=== PATIENT | female | born 1950 | race African-American/Black ===

== ENCOUNTER 2017-09-16 04:58 | Emergency (ER) | payer MEDICARE, MEDICAID ==
[~2017-09-16] VITALS: Ht 167.6 cm; Wt 81.0 kg
[~2017-09-16 04:58] MED LIST: ESOM40CA PO; FOLI-43 PO; HYDR-4092 PO; HYDR200T35 PO; NAPR-679 PO; OLME1TAB14 PO; POTA8CAP10 PO; TRAM50TA PO; ZOLP10TA6 PO
[2017-09-16] MEDS ORDERED: ACETAMINOPHEN 500MG TABLET PO ONE (08:30)
[2017-09-16 09:31] VITALS: BP 148/80
== END 2017-09-16 10:08 | disposition home or self-care (01) ==
LOC: ER 04:58
DX: M79.641 Pain in right hand (principal); M25.531 Pain in right wrist; M25.511 Pain in right shoulder; I10 Essential (primary) hypertension; J45.909 Unspecified asthma, uncomplicated; Z88.0 Allergy status to penicillin; Z88.1 Allergy status to other antibiotic agents
CPT/HCPCS: 73030; 73130; 99284

== ENCOUNTER 2017-11-29 15:16 | Emergency (ER) | payer MEDICARE, MEDICAID ==
[~2017-11-29] VITALS: Ht 167.6 cm; Wt 82.0 kg
[2017-11-29] MEDS: ACETAMINOPHEN 325MG TABLET PO ONE (16:09)
[2017-11-29] MEDS: VISCOUS LIDOCAINE 2% 15 ML UDC MM STA (16:10)
[2017-11-29 16:22] VITALS: BP 161/98
== END 2017-11-29 16:25 | disposition home or self-care (01) ==
LOC: ER 15:27
DX: H66.91 Otitis media, unspecified, right ear (principal); J45.909 Unspecified asthma, uncomplicated; I10 Essential (primary) hypertension; Z88.0 Allergy status to penicillin; Z88.1 Allergy status to other antibiotic agents
CPT/HCPCS: 99283

== ENCOUNTER 2019-04-08 14:44 | Emergency (ER) | payer MEDICARE, BC ==
[~2019-04-08] VITALS: Ht 165.1 cm; Wt 76.0 kg
[~2019-04-08 14:44] MED LIST changes: +HYDR-4086 PO; -HYDR-4092 PO
[2019-04-08] MEDS ORDERED: HYDROCODONE/ACETAMINOPHEN 5/325MG TABLET PO STA (17:07)
[2019-04-08 17:45] LABS: BASOPHILS % 0.9 % (0.0-2.0); EOSINOPHILS % 0.6 % (0.0-5.0); HEMATOCRIT. 35.6 % (36.0-48.0); HEMOGLOBIN. 11.2 g/dL (12.0-16.0); LYMPHOCYTES % 29.4 % (20.0-50.0); MEAN CORPUSCULAR HEMOGLOBIN 26.8 pg (28.0-32.0); MEAN PLATELET VOLUME 8.1 fl (7.4-10.4); MONOCYTES % 9.1 % (2.0-8.0); PLATELET 269 x1000/uL (130-400); RED BLOOD CELL COUNT 4.18 mill/uL (4.2-5.4); RED CELL DISTRIBUTION WIDTH 14.9 % (11.6-14.6)
[2019-04-08 17:52] LABS: CHLORIDE 108 mEq/L (98-107); PROTHROMBIN TIME 9.9 sec (9.6-11.0)
[2019-04-08 18:55] VITALS: BP 138/78
== END 2019-04-08 19:16 | disposition home or self-care (01) ==
LOC: ER 14:56
DX: R51 Headache (principal); M79.605 Pain in left leg; M79.604 Pain in right leg; M25.511 Pain in right shoulder; I10 Essential (primary) hypertension; D50.9 Iron deficiency anemia, unspecified; M71.22 Synovial cyst of popliteal space [Baker], left knee; M71.21 Synovial cyst of popliteal space [Baker], right knee; R90.82 White matter disease, unspecified; W01.0XXA Fall on same level from slipping, tripping and stumbling without subsequent striking against object, initial encounter; Y93.H2 Activity, gardening and landscaping; Y92.017 Garden or yard in single-family (private) house as the place of occurrence of the external cause
CPT/HCPCS: 36415; 73030; 93970; 99284

== ENCOUNTER 2019-05-03 00:37 | Emergency (ER) | payer MEDICARE, BC ==
[~2019-05-03] VITALS: Ht 167.6 cm; Wt 80.0 kg
[2019-05-03] MEDS: HYDROCODONE/ACETAMINOPHEN 5/325MG TABLET PO ONE (02:25)
[2019-05-03] MEDS: KETOROLAC 60MG/2ML VIAL IM ONE (02:25)
[2019-05-03 02:56] VITALS: BP 143/78
== END 2019-05-03 03:03 | disposition home or self-care (01) ==
LOC: ER 01:33
DX: M79.18 Myalgia, other site (principal); F17.200 Nicotine dependence, unspecified, uncomplicated; I10 Essential (primary) hypertension; Z90.49 Acquired absence of other specified parts of digestive tract; Z90.710 Acquired absence of both cervix and uterus; Z79.899 Other long term (current) drug therapy; Z88.0 Allergy status to penicillin; Z88.1 Allergy status to other antibiotic agents
CPT/HCPCS: 96372; 99283; J1885

== ENCOUNTER 2020-08-22 07:33 | Emergency (ER) | payer MEDICARE, MEDICAID ==
[~2020-08-22] VITALS: Ht 167.6 cm; Wt 62.0 kg
[~2020-08-22 07:33] MED LIST changes: -POTA8CAP10 PO; +POTA8CAP20 PO
[2020-08-22] MEDS ORDERED: ACETAMINOPHEN 325MG TABLET PO ONE (08:45)
[2020-08-22 10:08] LABS: BASOPHILS % 0.8 % (0.0-2.0); EOSINOPHILS % 1.3 % (0.0-5.0); HEMATOCRIT. 34.9 % (36.0-48.0); HEMOGLOBIN. 11.2 g/dL (12.0-16.0); MEAN CORPUSCULAR HEMOGLOBIN 28.1 pg (28.0-32.0); MEAN CORPUSCULAR VOLUME 87.8 fL (81.0-99.0); MEAN PLATELET VOLUME 8.6 fl (7.4-10.4); MONOCYTES % 6.5 % (2.0-8.0); NEUTROPHILS % 47.4 % (40.0-76.0); PLATELET 181 x1000/uL (130-400); RED BLOOD CELL COUNT 3.97 mill/uL (4.2-5.4); RED CELL DISTRIBUTION WIDTH 13.4 % (11.6-14.6)
[2020-08-22 10:15] LABS: CHLORIDE 110 mEq/L (98-107)
[2020-08-22 10:19] LABS: INR 2.1; PARTIAL THROMBOPLASTIN TIME 40.4 sec (23.4-31.0); PROTHROMBIN TIME 20.9 sec (9.6-11.0)
[2020-08-22 11:25] VITALS: BP 145/85
== END 2020-08-22 12:05 | disposition home or self-care (01) ==
LOC: ER 07:33
DX: M71.22 Synovial cyst of popliteal space [Baker], left knee (principal); M71.21 Synovial cyst of popliteal space [Baker], right knee; I10 Essential (primary) hypertension; E78.5 Hyperlipidemia, unspecified; Z86.718 Personal history of other venous thrombosis and embolism; Z79.01 Long term (current) use of anticoagulants
CPT/HCPCS: 36415; 71045; 73560; 80053; 85025; 93005; 93970; 99285

== ENCOUNTER 2020-08-31 18:47 | Emergency (ER) | payer MEDICARE, MEDICAID ==
[~2020-08-31] VITALS: Ht 167.6 cm; Wt 67.0 kg
[2020-09-01] MEDS ORDERED: ACETAMINOPHEN 325MG TABLET PO ONE (00:15)
[2020-09-01 01:43] LABS: BASOPHILS % 1.1 % (0.0-2.0); HEMATOCRIT. 32.2 % (36.0-48.0); HEMOGLOBIN. 10.5 g/dL (12.0-16.0); LYMPHOCYTES % 34.2 % (20.0-50.0); MEAN CORPUSCULAR HEMOGLOBIN 28.4 pg (28.0-32.0); MEAN CORPUSCULAR VOLUME 86.8 fL (81.0-99.0); MONOCYTES % 9.1 % (2.0-8.0); NEUTROPHILS % 54.6 % (40.0-76.0); PLATELET 250 x1000/uL (130-400); RED BLOOD CELL COUNT 3.71 mill/uL (4.2-5.4); RED CELL DISTRIBUTION WIDTH 13.7 % (11.6-14.6)
[2020-09-01 01:55] LABS: CHLORIDE 112 mEq/L (98-107)
[2020-09-01 01:57] LABS: INR 1.6; PROTHROMBIN TIME 16.1 sec (9.6-11.0)
[2020-09-01 04:05] VITALS: BP 157/73
== END 2020-09-01 05:00 | disposition home or self-care (01) ==
LOC: ER 18:47
DX: R60.0 Localized edema (principal); D64.9 Anemia, unspecified; I10 Essential (primary) hypertension; Z90.49 Acquired absence of other specified parts of digestive tract; Z90.710 Acquired absence of both cervix and uterus; Z88.0 Allergy status to penicillin; Z79.899 Other long term (current) drug therapy
CPT/HCPCS: 36415; 80053; 85025; 93005; 93971; 99285

== ENCOUNTER 2021-02-10 05:45 | Inpatient (IN) | payer MEDICARE, MEDICAID ==
[~2021-02-10] VITALS: Ht 167.6 cm; Wt 65.8 kg
[2021-02-10] MEDS: IPRATROPIUM/ALBUTEROL 0.5-3(2.5)MG/3ML NEB HHN SCH (00:56)
[~2021-02-10 05:45] MED LIST changes: +P20 MT; +THEO100C MT
[2021-02-10 06:37] LABS: HEMATOCRIT. 29.3 % (36.0-48.0); HEMOGLOBIN. 9.7 g/dL (12.0-16.0); MEAN CORPUSCULAR HEMOGLOBIN 27.4 pg (28.0-32.0); MEAN CORPUSCULAR VOLUME 82.3 fL (81.0-99.0); MEAN PLATELET VOLUME 7.6 fl (7.4-10.4); PLATELET 259 x1000/uL (130-400); RED BLOOD CELL COUNT 3.56 mill/uL (4.2-5.4); RED CELL DISTRIBUTION WIDTH 14.2 % (11.6-14.6)
[2021-02-10 06:42] LABS: CHLORIDE 108 mEq/L (98-107)
[2021-02-10 07:07] LABS: INR 0.9; PROTHROMBIN TIME 9.6 sec (9.6-11.0)
[2021-02-10 09:58] LABS: PLATELET ESTIMATE NORMAL
[2021-02-10] MEDS ORDERED: DEXT 5%/0.9% NACL 1,000 ML IV ONE (10:00)
[2021-02-10] MEDS: METHYLPREDNISOLONE SOD SUCC 40 MG/ML VIAL IV SCH ×2 (10:32→21:59)
[2021-02-10] MEDS ORDERED: AMLODIPINE 5MG TABLET PO NR (16:00)
[2021-02-10 16:13] LABS: INR 0.9; PROTHROMBIN TIME 10.1 sec (9.6-11.0)
[2021-02-10 18:05] VITALS: BP_SYST 161; BP_DIAS 72; BP_DIAS 78
[2021-02-10 18:39] LABS: HEMOGLOBIN 8.2 g/dL (12.0-16.0)
[2021-02-10] MEDS ORDERED: ACETAMINOPHEN 325MG TABLET PO PRN (19:30)
[2021-02-10] MEDS ORDERED: LORAZEPAM 2MG/ML CPJ IV PRN (19:30)
[2021-02-10] MEDS ORDERED: ZOLPIDEM TARTRATE 5MG TABLET PO PRN (19:30)
[2021-02-10] MEDS ORDERED: ONDANSETRON HCL 4MG/2ML INJ IV PRN (19:30)
[2021-02-10] MEDS ORDERED: MAGNESIUM/ALUMINUM HYDROXIDE/SIMETHICONE 30ML UDC PO PRN (19:30)
[2021-02-10] MEDS: METOPROLOL TARTRATE 25MG TABLET PO SCH (19:53)
[2021-02-10 20:00] VITALS: BP 139/85
[2021-02-10 20:31] LABS: BASOPHILS % 0.4 % (0.0-2.0); HEMATOCRIT. 23.4 % (36.0-48.0); LYMPHOCYTES % 11.3 % (20.0-50.0); MEAN CORPUSCULAR HEMOGLOBIN 28.2 pg (28.0-32.0); MEAN CORPUSCULAR VOLUME 82.1 fL (81.0-99.0); MEAN PLATELET VOLUME 7.4 fl (7.4-10.4); MONOCYTES % 6.2 % (2.0-8.0); NEUTROPHILS % 82.1 % (40.0-76.0); PLATELET 231 x1000/uL (130-400); RED BLOOD CELL COUNT 2.85 mill/uL (4.2-5.4); RED CELL DISTRIBUTION WIDTH 14.1 % (11.6-14.6)
[2021-02-10] MEDS ORDERED: ERGOCALCIFEROL 50000UNITS CAPSULE PO SCH (21:00)
[2021-02-10] MEDS: TRAZODONE HCL 50MG TABLET PO SCH (21:59)
[2021-02-10 22:00] VITALS: BP 169/99
[2021-02-10] MEDS: THEOPHYLLINE ANHYDROUS 80 MG/15 ML 120ML PO SCH (22:00)
[2021-02-10] MEDS: LOSARTAN POTASSIUM 100 MG TABLET PO SCH (22:00)
[2021-02-10] MEDS: ATORVASTATIN CALCIUM 10MG TABLET PO SCH (22:00)
[2021-02-10] MEDS: HYDRALAZINE HCL 50MG TABLET PO SCH (22:12)
[2021-02-10] MEDS: LISINOPRIL 20MG TABLET PO SCH (23:41)
[2021-02-11] VITALS (17 sets, daily range): BP systolic 114–179; BP diastolic 62–90
[2021-02-11 01:38] LABS: HEMATOCRIT 23.6 % (36.0-48.0)
[2021-02-11] MEDS: DEXT 5%/0.9% NACL 1,000 ML IV SCH ×3 (04:06→22:37)
[2021-02-11] MEDS: IPRATROPIUM/ALBUTEROL 0.5-3(2.5)MG/3ML NEB HHN SCH ×5 (04:30→21:05)
[2021-02-11 06:07] LABS: CHLORIDE 106 mEq/L (98-107)
[2021-02-11 06:22] LABS: TOTAL IRON BINDING CAPACITY 234 ug/dL (250-450)
[2021-02-11 06:24] LABS: PHOSPHORUS 3.6 mg/dL (2.5-4.9)
[2021-02-11 06:27] LABS: BASOPHILS % 0.2 % (0.0-2.0); HEMATOCRIT. 23.6 % (36.0-48.0); HEMOGLOBIN. 7.8 g/dL (12.0-16.0); LYMPHOCYTES % 14.3 % (20.0-50.0); MEAN CORPUSCULAR HEMOGLOBIN 27.6 pg (28.0-32.0); MEAN CORPUSCULAR VOLUME 83.6 fL (81.0-99.0); MEAN PLATELET VOLUME 8.4 fl (7.4-10.4); MONOCYTES % 3.6 % (2.0-8.0); NEUTROPHILS % 81.9 % (40.0-76.0); PLATELET 229 x1000/uL (130-400); RED BLOOD CELL COUNT 2.82 mill/uL (4.2-5.4)
[2021-02-11 06:39] LABS: FERRITIN 286 ng/mL (10-291)
[2021-02-11] MEDS: THEOPHYLLINE ANHYDROUS 80 MG/15 ML 120ML PO SCH ×3 (06:42→22:36)
[2021-02-11 06:53] LABS: VITAMIN B12 SERUM 998 pg/mL (211-911)
[2021-02-11 06:54] LABS: FOLIC ACID (FOLATE) SERUM > 20.00 ng/mL (>5.38)
[2021-02-11] MEDS: LISINOPRIL 20MG TABLET PO SCH (08:51)
[2021-02-11] MEDS: METOPROLOL TARTRATE 25MG TABLET PO SCH ×2 (08:51→16:21)
[2021-02-11] MEDS: HYDROXYCHLOROQUINE SULFATE 200MG TABLET PO SCH ×2 (08:51→16:21)
[2021-02-11] MEDS: HYDRALAZINE HCL 50MG TABLET PO SCH ×2 (08:51→22:35)
[2021-02-11] MEDS: TRAZODONE HCL 50MG TABLET PO SCH ×2 (08:52→22:36)
[2021-02-11] MEDS: METHYLPREDNISOLONE SOD SUCC 40 MG/ML VIAL IV SCH ×2 (08:53→22:34)
[2021-02-11] MEDS: CALCIUM CARBONATE 1250MG TABLET (500MG ELEMENTAL CALCIUM) PO SCH ×3 (10:02→16:21)
[2021-02-11 10:34] LABS: HEMATOCRIT 20.3 % (36.0-48.0); HEMOGLOBIN 6.7 g/dL (12.0-16.0)
[2021-02-11] MEDS ORDERED: METRONIDAZOLE 500 MG PREMIX 100 ML IV SCH (15:30)
[2021-02-11] MEDS: METRONIDAZOLE 500 MG PREMIX 100 ML IV SCH ×2 (16:15→22:37)
[2021-02-11] MEDS: LEVOFLOXACIN 750MG PREMIX 150 ML IV SCH (17:38)
[2021-02-11 21:32] LABS: HEMATOCRIT. 24.2 % (36.0-48.0); HEMOGLOBIN. 8.3 g/dL (12.0-16.0); LYMPHOCYTES % 10.3 % (20.0-50.0); MEAN CORPUSCULAR HEMOGLOBIN 28.2 pg (28.0-32.0); MEAN CORPUSCULAR VOLUME 81.9 fL (81.0-99.0); MEAN PLATELET VOLUME 7.8 fl (7.4-10.4); MONOCYTES % 6.8 % (2.0-8.0); NEUTROPHILS % 82.9 % (40.0-76.0); PLATELET 216 x1000/uL (130-400); RED BLOOD CELL COUNT 2.96 mill/uL (4.2-5.4); RED CELL DISTRIBUTION WIDTH 13.6 % (11.6-14.6)
[2021-02-11] MEDS: ATORVASTATIN CALCIUM 10MG TABLET PO SCH (22:36)
[2021-02-11] MEDS: LOSARTAN POTASSIUM 100 MG TABLET PO SCH (22:36)
[2021-02-12] VITALS (17 sets, daily range): BP systolic 108–134; BP diastolic 58–87
[2021-02-12 00:36] LABS: CLARITY URINE CLEAR (CLEAR); COLOR URINE YELLOW (YELLOW); KETONES URINE NEGATIVE (NEGATIVE); LEUKOCYTE ESTERASE URINE TRACE (NEGATIVE); NITRITE URINE NEGATIVE (NEGATIVE); OCCULT BLOOD URINE NEGATIVE (NEGATIVE); PH URINE 6.5 (4.5-8.0); PROTEIN URINE NEGATIVE (NEGATIVE); SPECIFIC GRAVITY URINE 1.005 (1.005-1.030); UROBILINOGEN URINE 0.2 E.U./dL (0.2-1.0)
[2021-02-12] MEDS: IPRATROPIUM/ALBUTEROL 0.5-3(2.5)MG/3ML NEB HHN SCH ×6 (00:56→21:00)
[2021-02-12] MEDS: THEOPHYLLINE ANHYDROUS 80 MG/15 ML 120ML PO SCH ×3 (05:56→22:00)
[2021-02-12 06:46] LABS: HEMATOCRIT. 24.8 % (36.0-48.0); HEMOGLOBIN. 8.3 g/dL (12.0-16.0); MEAN CORPUSCULAR HEMOGLOBIN 27.5 pg (28.0-32.0); MEAN CORPUSCULAR VOLUME 82.1 fL (81.0-99.0); MEAN PLATELET VOLUME 7.8 fl (7.4-10.4); PLATELET 172 x1000/uL (130-400); RED BLOOD CELL COUNT 3.02 mill/uL (4.2-5.4); RED CELL DISTRIBUTION WIDTH 13.4 % (11.6-14.6)
[2021-02-12 07:08] LABS: PHOSPHORUS 2.9 mg/dL (2.5-4.9)
[2021-02-12] MEDS: METOPROLOL TARTRATE 25MG TABLET PO SCH ×2 (08:24→16:02)
[2021-02-12] MEDS: METHYLPREDNISOLONE SOD SUCC 40 MG/ML VIAL IV SCH (08:24)
[2021-02-12] MEDS: LISINOPRIL 20MG TABLET PO SCH (08:24)
[2021-02-12] MEDS: HYDROXYCHLOROQUINE SULFATE 200MG TABLET PO SCH ×2 (08:24→16:02)
[2021-02-12] MEDS: METRONIDAZOLE 500 MG PREMIX 100 ML IV SCH ×2 (08:24→15:05)
[2021-02-12] MEDS: TRAZODONE HCL 50MG TABLET PO SCH (08:25)
[2021-02-12] MEDS: CALCIUM CARBONATE 1250MG TABLET (500MG ELEMENTAL CALCIUM) PO SCH ×3 (08:25→16:02)
[2021-02-12] MEDS: HYDRALAZINE HCL 50MG TABLET PO SCH ×2 (08:25→21:00)
[2021-02-12 14:17] LABS: PLATELET ESTIMATE NORMAL
[2021-02-12] MEDS: DEXT 5%/0.9% NACL 1,000 ML IV SCH (14:29)
[2021-02-12] MEDS: LEVOFLOXACIN 750MG PREMIX 150 ML IV SCH (16:03)
[2021-02-13] VITALS (24 sets, daily range): BP systolic 108–176; BP diastolic 57–99
[2021-02-13] MEDS: METHYLPREDNISOLONE SOD SUCC 40 MG/ML VIAL IV SCH ×3 (00:10→21:06)
[2021-02-13] MEDS: LOSARTAN POTASSIUM 100 MG TABLET PO SCH ×2 (00:12→21:07)
[2021-02-13] MEDS: TRAZODONE HCL 50MG TABLET PO SCH ×3 (00:12→21:07)
[2021-02-13] MEDS: ATORVASTATIN CALCIUM 10MG TABLET PO SCH ×2 (00:13→21:07)
[2021-02-13] MEDS: METRONIDAZOLE 500 MG PREMIX 100 ML IV SCH ×3 (00:14→16:09)
[2021-02-13] MEDS: IPRATROPIUM/ALBUTEROL 0.5-3(2.5)MG/3ML NEB HHN SCH ×5 (00:30→17:12)
[2021-02-13] MEDS: THEOPHYLLINE ANHYDROUS 80 MG/15 ML 120ML PO SCH ×2 (05:59→14:09)
[2021-02-13 07:12] LABS: CHLORIDE 111 mEq/L (98-107)
[2021-02-13 07:14] LABS: MEAN CORPUSCULAR VOLUME 82.4 fL (81.0-99.0); MEAN PLATELET VOLUME 7.6 fl (7.4-10.4); PLATELET 176 x1000/uL (130-400); RED BLOOD CELL COUNT 2.42 mill/uL (4.2-5.4); RED CELL DISTRIBUTION WIDTH 14.3 % (11.6-14.6)
[2021-02-13 07:19] LABS: PHOSPHORUS 2.5 mg/dL (2.5-4.9)
[2021-02-13 08:33] LABS: HEMOGLOBIN. 6.8 g/dL (12.0-16.0)
[2021-02-13] MEDS: HYDROXYCHLOROQUINE SULFATE 200MG TABLET PO SCH ×2 (08:45→17:39)
[2021-02-13] MEDS: METOPROLOL TARTRATE 25MG TABLET PO SCH ×2 (08:45→17:41)
[2021-02-13] MEDS: CALCIUM CARBONATE 1250MG TABLET (500MG ELEMENTAL CALCIUM) PO SCH ×3 (08:46→17:39)
[2021-02-13] MEDS: HYDRALAZINE HCL 50MG TABLET PO SCH ×2 (08:46→21:06)
[2021-02-13] MEDS: LISINOPRIL 20MG TABLET PO SCH (08:46)
[2021-02-13] MEDS: DEXT 5%/0.9% NACL 1,000 ML IV SCH ×2 (14:10→14:11)
[2021-02-13 14:34] LABS: PLATELET ESTIMATE NORMAL
[2021-02-13] MEDS: LEVOFLOXACIN 750MG PREMIX 150 ML IV SCH (17:39)
[2021-02-14] VITALS (19 sets, daily range): BP systolic 105–182; BP diastolic 61–99
[2021-02-14] MEDS: METRONIDAZOLE 500 MG PREMIX 100 ML IV SCH ×3 (00:49→17:18)
[2021-02-14] MEDS: THEOPHYLLINE ANHYDROUS 80 MG/15 ML 120ML PO SCH ×4 (00:50→21:40)
[2021-02-14 01:22] LABS: HEMATOCRIT 26.1 % (36.0-48.0)
[2021-02-14] MEDS ORDERED: CLONIDINE 0.3MG TABLET PO NR (02:00)
[2021-02-14] MEDS: DEXT 5%/0.9% NACL 1,000 ML IV SCH ×2 (03:37→17:23)
[2021-02-14 06:55] LABS: BASOPHILS % 0.1 % (0.0-2.0); HEMATOCRIT. 23.4 % (36.0-48.0); HEMOGLOBIN. 7.9 g/dL (12.0-16.0); LYMPHOCYTES % 7.6 % (20.0-50.0); MEAN CORPUSCULAR HEMOGLOBIN 28.7 pg (28.0-32.0); MEAN CORPUSCULAR VOLUME 84.7 fL (81.0-99.0); MEAN PLATELET VOLUME 7.4 fl (7.4-10.4); MONOCYTES % 5.3 % (2.0-8.0); PLATELET 161 x1000/uL (130-400); RED BLOOD CELL COUNT 2.76 mill/uL (4.2-5.4); RED CELL DISTRIBUTION WIDTH 15.1 % (11.6-14.6)
[2021-02-14 06:56] LABS: INR 1.1; PARTIAL THROMBOPLASTIN TIME 25.1 sec (23.4-31.0); PROTHROMBIN TIME 11.8 sec (9.6-11.0)
[2021-02-14 07:02] LABS: CHLORIDE 112 mEq/L (98-107)
[2021-02-14] MEDS: IPRATROPIUM/ALBUTEROL 0.5-3(2.5)MG/3ML NEB HHN SCH ×3 (07:40→16:26)
[2021-02-14] MEDS: METHYLPREDNISOLONE SOD SUCC 40 MG/ML VIAL IV SCH ×3 (09:28→21:40)
[2021-02-14] MEDS: LISINOPRIL 20MG TABLET PO SCH (09:29)
[2021-02-14] MEDS: TRAZODONE HCL 50MG TABLET PO SCH ×2 (09:29→21:40)
[2021-02-14] MEDS: CALCIUM CARBONATE 1250MG TABLET (500MG ELEMENTAL CALCIUM) PO SCH ×3 (09:29→17:25)
[2021-02-14] MEDS: HYDROXYCHLOROQUINE SULFATE 200MG TABLET PO SCH ×2 (09:29→17:19)
[2021-02-14] MEDS: METOPROLOL TARTRATE 25MG TABLET PO SCH ×2 (09:29→17:20)
[2021-02-14] MEDS: HYDRALAZINE HCL 50MG TABLET PO SCH ×2 (09:30→21:39)
[2021-02-14 17:13] LABS: BASOPHILS % 0.1 % (0.0-2.0); HEMATOCRIT. 23.8 % (36.0-48.0); HEMOGLOBIN. 8.2 g/dL (12.0-16.0); LYMPHOCYTES % 11.4 % (20.0-50.0); MEAN CORPUSCULAR HEMOGLOBIN 29.3 pg (28.0-32.0); MEAN CORPUSCULAR VOLUME 85.4 fL (81.0-99.0); MEAN PLATELET VOLUME 7.4 fl (7.4-10.4); NEUTROPHILS % 84.5 % (40.0-76.0); PLATELET 159 x1000/uL (130-400); RED BLOOD CELL COUNT 2.78 mill/uL (4.2-5.4); RED CELL DISTRIBUTION WIDTH 14.9 % (11.6-14.6)
[2021-02-14] MEDS: LEVOFLOXACIN 750MG PREMIX 150 ML IV SCH (17:18)
[2021-02-14] MEDS: LOSARTAN POTASSIUM 100 MG TABLET PO SCH (21:40)
[2021-02-14] MEDS: ATORVASTATIN CALCIUM 10MG TABLET PO SCH (21:40)
[2021-02-15] VITALS: BP 112/77
[2021-02-15] MEDS: IPRATROPIUM/ALBUTEROL 0.5-3(2.5)MG/3ML NEB HHN SCH ×6 (00:34→20:47)
[2021-02-15] MEDS: METRONIDAZOLE 500 MG PREMIX 100 ML IV SCH ×3 (01:49→16:20)
[2021-02-15] MEDS: ACETAMINOPHEN 325MG TABLET PO PRN ×2 (02:12→15:26)
[2021-02-15 04:00] VITALS: BP 119/55
[2021-02-15] MEDS: METHYLPREDNISOLONE SOD SUCC 40 MG/ML VIAL IV SCH ×3 (06:01→21:06)
[2021-02-15] MEDS: THEOPHYLLINE ANHYDROUS 80 MG/15 ML 120ML PO SCH ×3 (06:02→21:08)
[2021-02-15 08:00] VITALS: BP 113/67
[2021-02-15 08:33] LABS: BASOPHILS % 0.1 % (0.0-2.0); HEMATOCRIT. 23.1 % (36.0-48.0); HEMOGLOBIN. 7.6 g/dL (12.0-16.0); LYMPHOCYTES % 8.6 % (20.0-50.0); MEAN CORPUSCULAR HEMOGLOBIN 28.4 pg (28.0-32.0); MEAN CORPUSCULAR VOLUME 85.7 fL (81.0-99.0); MEAN PLATELET VOLUME 7.4 fl (7.4-10.4); MONOCYTES % 3.5 % (2.0-8.0); NEUTROPHILS % 87.8 % (40.0-76.0); PLATELET 179 x1000/uL (130-400); RED BLOOD CELL COUNT 2.69 mill/uL (4.2-5.4); RED CELL DISTRIBUTION WIDTH 14.8 % (11.6-14.6)
[2021-02-15 08:46] LABS: CHLORIDE 113 mEq/L (98-107)
[2021-02-15] MEDS: HYDRALAZINE HCL 50MG TABLET PO SCH ×2 (09:00→21:07)
[2021-02-15] MEDS: HYDROXYCHLOROQUINE SULFATE 200MG TABLET PO SCH ×2 (09:00→16:20)
[2021-02-15] MEDS: METOPROLOL TARTRATE 25MG TABLET PO SCH ×2 (09:00→16:19)
[2021-02-15] MEDS: LISINOPRIL 20MG TABLET PO SCH (09:00)
[2021-02-15] MEDS: TRAZODONE HCL 50MG TABLET PO SCH ×2 (09:00→21:06)
[2021-02-15] MEDS: CALCIUM CARBONATE 1250MG TABLET (500MG ELEMENTAL CALCIUM) PO SCH ×3 (09:00→16:20)
[2021-02-15 12:00] VITALS: BP 138/69
[2021-02-15] MEDS: DEXT 5%/0.9% NACL 1,000 ML IV SCH (14:13)
[2021-02-15 16:00] VITALS: BP 143/68
[2021-02-15] MEDS: LEVOFLOXACIN 750MG PREMIX 150 ML IV SCH (16:20)
[2021-02-15 20:00] VITALS: BP 148/82
[2021-02-15] MEDS: ATORVASTATIN CALCIUM 10MG TABLET PO SCH (21:06)
[2021-02-15] MEDS: LOSARTAN POTASSIUM 100 MG TABLET PO SCH (21:07)
[2021-02-16] VITALS (10 sets, daily range): BP systolic 112–175; BP diastolic 65–86
[2021-02-16] MEDS: METRONIDAZOLE 500 MG PREMIX 100 ML IV SCH ×2 (00:37→08:47)
[2021-02-16] MEDS: IPRATROPIUM/ALBUTEROL 0.5-3(2.5)MG/3ML NEB HHN SCH ×6 (00:44→21:07)
[2021-02-16 04:07] LABS: OVA & PARASITE EXAM Final report (.)
[2021-02-16] MEDS: THEOPHYLLINE ANHYDROUS 80 MG/15 ML 120ML PO SCH ×3 (06:00→21:32)
[2021-02-16] MEDS: METHYLPREDNISOLONE SOD SUCC 40 MG/ML VIAL IV SCH ×3 (06:15→19:05)
[2021-02-16] MEDS: TRAZODONE HCL 50MG TABLET PO SCH ×2 (08:57→21:31)
[2021-02-16] MEDS: HYDRALAZINE HCL 50MG TABLET PO SCH ×2 (08:57→21:30)
[2021-02-16] MEDS: METOPROLOL TARTRATE 25MG TABLET PO SCH ×2 (08:58→19:07)
[2021-02-16] MEDS: HYDROXYCHLOROQUINE SULFATE 200MG TABLET PO SCH ×2 (08:58→19:05)
[2021-02-16] MEDS: LISINOPRIL 20MG TABLET PO SCH (08:58)
[2021-02-16] MEDS: CALCIUM CARBONATE 1250MG TABLET (500MG ELEMENTAL CALCIUM) PO SCH ×3 (08:58→19:05)
[2021-02-16 09:11] LABS: SACCHAROMYCES CEREVISIAE IGM <20.0 Units (0.0-24.9)
[2021-02-16 09:35] LABS: HEMATOCRIT. 27.6 % (36.0-48.0); HEMOGLOBIN. 9.1 g/dL (12.0-16.0); MEAN CORPUSCULAR HEMOGLOBIN 28.5 pg (28.0-32.0); MEAN CORPUSCULAR VOLUME 86.6 fL (81.0-99.0); MEAN PLATELET VOLUME 7.3 fl (7.4-10.4); PLATELET 172 x1000/uL (130-400); RED BLOOD CELL COUNT 3.18 mill/uL (4.2-5.4); RED CELL DISTRIBUTION WIDTH 14.6 % (11.6-14.6)
[2021-02-16 09:41] LABS: INR 1.1; PARTIAL THROMBOPLASTIN TIME 23.9 sec (23.4-31.0); PROTHROMBIN TIME 11.5 sec (9.6-11.0)
[2021-02-16 09:42] LABS: CHLORIDE 112 mEq/L (98-107)
[2021-02-16] MEDS: DEXT 5%/0.9% NACL 1,000 ML IV SCH ×3 (13:05→21:33)
[2021-02-16 13:07] LABS: ATYPICAL pANCA <1:20 titer (Neg:<1:20)
[2021-02-16] MEDS ORDERED: PROPOFOL 200MG/20ML VIAL IV ONE (14:14)
[2021-02-16] MEDS ORDERED: LIDOCAINE HCL 1% 20ML VIAL (Pyxis) INJ ONE (14:14)
[2021-02-16] MEDS ORDERED: PROPOFOL 10MG/ML 100ML 100 ML IV ONE (14:45)
[2021-02-16] MEDS: LEVOFLOXACIN 750MG PREMIX 150 ML IV SCH (19:07)
[2021-02-16] MEDS: ACETAMINOPHEN 325MG TABLET PO PRN ×2 (19:36→21:30)
[2021-02-16] MEDS: ATORVASTATIN CALCIUM 10MG TABLET PO SCH (21:31)
[2021-02-16] MEDS: LOSARTAN POTASSIUM 100 MG TABLET PO SCH (21:31)
[2021-02-17] VITALS: BP 116/72
[2021-02-17] MEDS: IPRATROPIUM/ALBUTEROL 0.5-3(2.5)MG/3ML NEB HHN SCH ×5 (00:34→20:29)
[2021-02-17 04:00] VITALS: BP 130/78
[2021-02-17] MEDS: THEOPHYLLINE ANHYDROUS 80 MG/15 ML 120ML PO SCH ×3 (06:13→21:07)
[2021-02-17] MEDS: METHYLPREDNISOLONE SOD SUCC 40 MG/ML VIAL IV SCH (06:13)
[2021-02-17 07:13] LABS: ANTI-CARDIOLIPIN AB IGG < 9 GPL U/mL (0-14); ANTI-CARDIOLIPIN AB IGM < 9 MPL U/mL (0-12)
[2021-02-17 07:55] LABS: EOSINOPHILS % 0.1 % (0.0-5.0); HEMATOCRIT. 26.9 % (36.0-48.0); HEMOGLOBIN. 8.9 g/dL (12.0-16.0); LYMPHOCYTES % 12.3 % (20.0-50.0); MEAN CORPUSCULAR HEMOGLOBIN 28.5 pg (28.0-32.0); MEAN CORPUSCULAR VOLUME 85.8 fL (81.0-99.0); MEAN PLATELET VOLUME 6.9 fl (7.4-10.4); MONOCYTES % 2.5 % (2.0-8.0); NEUTROPHILS % 85.1 % (40.0-76.0); PLATELET 168 x1000/uL (130-400); RED BLOOD CELL COUNT 3.13 mill/uL (4.2-5.4); RED CELL DISTRIBUTION WIDTH 15.1 % (11.6-14.6)
[2021-02-17 07:57] LABS: CHLORIDE 113 mEq/L (98-107)
[2021-02-17 08:00] VITALS: BP 141/82
[2021-02-17] MEDS: METOPROLOL TARTRATE 25MG TABLET PO SCH ×2 (08:27→16:41)
[2021-02-17] MEDS: TRAZODONE HCL 50MG TABLET PO SCH ×2 (08:27→21:08)
[2021-02-17] MEDS: HYDRALAZINE HCL 50MG TABLET PO SCH ×2 (08:27→21:08)
[2021-02-17] MEDS: CALCIUM CARBONATE 1250MG TABLET (500MG ELEMENTAL CALCIUM) PO SCH ×3 (08:28→16:41)
[2021-02-17] MEDS: HYDROXYCHLOROQUINE SULFATE 200MG TABLET PO SCH ×2 (08:28→17:56)
[2021-02-17] MEDS: LISINOPRIL 20MG TABLET PO SCH (08:28)
[2021-02-17] MEDS ORDERED: ERGOCALCIFEROL 50000UNITS CAPSULE PO SCH (09:00)
[2021-02-17 09:07] LABS: SACCHAROMYCES CEREVISIAE IGG 24.3 Units (0.0-24.9)
[2021-02-17] MEDS ORDERED: BARIUM SULFATE 176 GM SUSP.RECON ONE (11:29)
[2021-02-17] MEDS ORDERED: EZ-HD SUSPENSION(BARIUM SULFATE 340GM) PO ONE (11:29)
[2021-02-17] MEDS ORDERED: SIMETHICONE/SOD BICARB/CIT AC 1 EACH GRAN.EF.PK ONE (11:30)
[2021-02-17 12:00] VITALS: BP 167/92
[2021-02-17 12:34] LABS: PLATELET ESTIMATE NORMAL
[2021-02-17] MEDS ORDERED: POTASSIUM CHLORIDE INJ 30 MEQ in DEXT 5% WATER 250 ML IV ONE ×2 (13:00→17:00)
[2021-02-17] MEDS: DEXT 5%/0.9% NACL 1,000 ML IV SCH (14:06)
[2021-02-17 16:00] VITALS: BP 107/71
[2021-02-17] MEDS: LEVOFLOXACIN 750MG PREMIX 150 ML IV SCH (16:41)
[2021-02-17] MEDS: METRONIDAZOLE 500 MG PREMIX 100 ML IV SCH ×2 (16:41→21:07)
[2021-02-17 20:00] VITALS: BP 160/96
[2021-02-17] MEDS: LOSARTAN POTASSIUM 100 MG TABLET PO SCH (21:08)
[2021-02-17] MEDS: ATORVASTATIN CALCIUM 10MG TABLET PO SCH (21:08)
[2021-02-17] MEDS: ACETAMINOPHEN 325MG TABLET PO PRN (21:09)
[2021-02-18 00:40] VITALS: BP 150/94
[2021-02-18] MEDS: IPRATROPIUM/ALBUTEROL 0.5-3(2.5)MG/3ML NEB HHN SCH ×6 (00:49→20:34)
[2021-02-18 04:00] VITALS: BP 155/85
[2021-02-18] MEDS: DEXT 5%/0.9% NACL 1,000 ML IV SCH ×3 (05:51→20:43)
[2021-02-18] MEDS: METRONIDAZOLE 500 MG PREMIX 100 ML IV SCH ×3 (05:51→21:35)
[2021-02-18] MEDS: ACETAMINOPHEN 325MG TABLET PO PRN (05:51)
[2021-02-18] MEDS: THEOPHYLLINE ANHYDROUS 80 MG/15 ML 120ML PO SCH ×3 (05:51→21:37)
[2021-02-18 06:57] LABS: CHLORIDE 108 mEq/L (98-107)
[2021-02-18 08:00] VITALS: BP 141/66
[2021-02-18] MEDS: LISINOPRIL 20MG TABLET PO SCH (08:26)
[2021-02-18] MEDS: HYDROXYCHLOROQUINE SULFATE 200MG TABLET PO SCH ×2 (08:26→17:14)
[2021-02-18] MEDS: METOPROLOL TARTRATE 25MG TABLET PO SCH ×2 (08:26→17:14)
[2021-02-18] MEDS: PREDNISONE 20MG TABLET PO SCH (08:26)
[2021-02-18] MEDS: TRAZODONE HCL 50MG TABLET PO SCH ×2 (08:27→21:35)
[2021-02-18] MEDS: HYDRALAZINE HCL 50MG TABLET PO SCH ×2 (08:27→21:35)
[2021-02-18] MEDS: CALCIUM CARBONATE 1250MG TABLET (500MG ELEMENTAL CALCIUM) PO SCH ×3 (08:27→17:14)
[2021-02-18 12:00] VITALS: BP 141/89
[2021-02-18 16:00] VITALS: BP 150/86
[2021-02-18] MEDS: LEVOFLOXACIN 750MG PREMIX 150 ML IV SCH (17:14)
[2021-02-18 20:00] VITALS: BP 127/77
[2021-02-18] MEDS: ATORVASTATIN CALCIUM 10MG TABLET PO SCH (21:35)
[2021-02-18] MEDS: LOSARTAN POTASSIUM 100 MG TABLET PO SCH (21:36)
[2021-02-19] VITALS: BP 122/68
[2021-02-19] MEDS: IPRATROPIUM/ALBUTEROL 0.5-3(2.5)MG/3ML NEB HHN SCH ×4 (00:03→20:47)
[2021-02-19 04:00] VITALS: BP 122/70
[2021-02-19] MEDS: METRONIDAZOLE 500 MG PREMIX 100 ML IV SCH ×3 (06:13→21:19)
[2021-02-19] MEDS: THEOPHYLLINE ANHYDROUS 80 MG/15 ML 120ML PO SCH ×3 (06:13→21:20)
[2021-02-19 07:04] LABS: CHLORIDE 111 mEq/L (98-107)
[2021-02-19 08:00] VITALS: BP 117/80
[2021-02-19] MEDS: METOPROLOL TARTRATE 25MG TABLET PO SCH ×2 (08:53→17:01)
[2021-02-19] MEDS: TRAZODONE HCL 50MG TABLET PO SCH ×2 (08:53→21:19)
[2021-02-19] MEDS: HYDROXYCHLOROQUINE SULFATE 200MG TABLET PO SCH ×2 (08:53→17:01)
[2021-02-19] MEDS: LISINOPRIL 20MG TABLET PO SCH (08:54)
[2021-02-19] MEDS: HYDRALAZINE HCL 50MG TABLET PO SCH ×2 (08:54→21:19)
[2021-02-19] MEDS: CALCIUM CARBONATE 1250MG TABLET (500MG ELEMENTAL CALCIUM) PO SCH ×3 (08:54→17:01)
[2021-02-19] MEDS: PREDNISONE 20MG TABLET PO SCH (08:54)
[2021-02-19 12:00] VITALS: BP 115/67
[2021-02-19 13:03] LABS: HEMATOCRIT. 27.6 % (36.0-48.0); HEMOGLOBIN. 9.3 g/dL (12.0-16.0); MEAN PLATELET VOLUME 6.8 fl (7.4-10.4); PLATELET 156 x1000/uL (130-400); RED CELL DISTRIBUTION WIDTH 15.3 % (11.6-14.6)
[2021-02-19 13:26] LABS: MEAN CORPUSCULAR VOLUME 86.3 fL (81.0-99.0)
[2021-02-19] MEDS: DEXT 5%/0.9% NACL 1,000 ML IV SCH ×2 (15:11→16:52)
[2021-02-19 15:28] LABS: PLATELET ESTIMATE NORMAL
[2021-02-19 16:00] VITALS: BP 142/84
[2021-02-19] MEDS: LEVOFLOXACIN 750MG PREMIX 150 ML IV SCH (17:01)
[2021-02-19 20:00] VITALS: BP 139/87
[2021-02-19] MEDS: ATORVASTATIN CALCIUM 10MG TABLET PO SCH (21:19)
[2021-02-19] MEDS: LOSARTAN POTASSIUM 100 MG TABLET PO SCH (21:19)
[2021-02-19] MEDS: ACETAMINOPHEN 325MG TABLET PO PRN (21:23)
[2021-02-20] VITALS: BP 155/86
[2021-02-20] MEDS: IPRATROPIUM/ALBUTEROL 0.5-3(2.5)MG/3ML NEB HHN SCH ×5 (00:44→17:01)
[2021-02-20 04:00] VITALS: BP 129/71
[2021-02-20] MEDS: THEOPHYLLINE ANHYDROUS 80 MG/15 ML 120ML PO SCH ×2 (05:36→13:01)
[2021-02-20] MEDS: METRONIDAZOLE 500 MG PREMIX 100 ML IV SCH ×2 (05:36→13:00)
[2021-02-20 05:39] LABS: BASOPHILS % 0.3 % (0.0-2.0); EOSINOPHILS % 0.5 % (0.0-5.0); HEMATOCRIT. 26.9 % (36.0-48.0); LYMPHOCYTES % 13.7 % (20.0-50.0); MEAN CORPUSCULAR HEMOGLOBIN 28.9 pg (28.0-32.0); MEAN PLATELET VOLUME 6.7 fl (7.4-10.4); NEUTROPHILS % 80.5 % (40.0-76.0); PLATELET 143 x1000/uL (130-400); RED BLOOD CELL COUNT 3.13 mill/uL (4.2-5.4); RED CELL DISTRIBUTION WIDTH 15.2 % (11.6-14.6)
[2021-02-20 05:45] LABS: CHLORIDE 110 mEq/L (98-107)
[2021-02-20] MEDS: DEXT 5%/0.9% NACL 1,000 ML IV SCH (05:45)
[2021-02-20 08:00] VITALS: BP 150/79
[2021-02-20] MEDS: METOPROLOL TARTRATE 25MG TABLET PO SCH ×2 (09:22→16:48)
[2021-02-20] MEDS: TRAZODONE HCL 50MG TABLET PO SCH (09:22)
[2021-02-20] MEDS: HYDRALAZINE HCL 50MG TABLET PO SCH (09:22)
[2021-02-20] MEDS: CALCIUM CARBONATE 1250MG TABLET (500MG ELEMENTAL CALCIUM) PO SCH ×3 (09:22→16:48)
[2021-02-20] MEDS: HYDROXYCHLOROQUINE SULFATE 200MG TABLET PO SCH ×2 (09:22→16:48)
[2021-02-20] MEDS: PREDNISONE 20MG TABLET PO SCH (09:23)
[2021-02-20] MEDS: LISINOPRIL 20MG TABLET PO SCH (09:23)
[2021-02-20 12:00] VITALS: BP 132/76
[2021-02-20 16:00] VITALS: BP 128/72
[2021-02-20] MEDS ORDERED: POTASSIUM CHLORIDE 20MEQ TABLET SR PO NR (16:39)
[2021-02-20] MEDS: LEVOFLOXACIN 750MG PREMIX 150 ML IV SCH (16:48)
[2021-02-20] MEDS ORDERED: POTASSIUM CHLORIDE 20MEQ TABLET SR PO SCH (18:45)
== END 2021-02-20 19:06 | disposition home health service (06) | DRG 919 ==
LOC: ER 05:45 → 3WST 08:19 → ENRESERV 08:30 → 3WST 19:50 → 5WST 02-14 11:37
PROVIDERS: ADMIT Internal Medicine Rheumatology; ATTEND Internal Medicine Rheumatology
PROC: 30233N1 Transfusion of Nonautologous Red Blood Cells into Peripheral Vein, Percutaneous Approach (ICD-10-PCS; principal; 2021-02-13)
PROC: 0DJ08ZZ Inspection of Upper Intestinal Tract, Via Natural or Artificial Opening Endoscopic (ICD-10-PCS; 2021-02-16)
DX: T85.838A Hemorrhage due to other internal prosthetic devices, implants and grafts, initial encounter (principal); E43 Unspecified severe protein-calorie malnutrition; E87.1 Hypo-osmolality and hyponatremia; I31.3 Pericardial effusion (noninflammatory); D62 Acute posthemorrhagic anemia; K52.9 Noninfective gastroenteritis and colitis, unspecified; I77.6 Arteritis, unspecified; J44.9 Chronic obstructive pulmonary disease, unspecified; J84.10 Pulmonary fibrosis, unspecified; M05.10 Rheumatoid lung disease with rheumatoid arthritis of unspecified site; D64.9 Anemia, unspecified; E16.2 Hypoglycemia, unspecified; I12.9 Hypertensive chronic kidney disease with stage 1 through stage 4 chronic kidney disease, or unspecified chronic kidney disease; I25.10 Atherosclerotic heart disease of native coronary artery without angina pectoris; I27.21 Secondary pulmonary arterial hypertension; N18.9 Chronic kidney disease, unspecified; M19.90 Unspecified osteoarthritis, unspecified site; M06.9 Rheumatoid arthritis, unspecified; E78.5 Hyperlipidemia, unspecified; K57.30 Diverticulosis of large intestine without perforation or abscess without bleeding; E87.6 Hypokalemia; E11.22 Type 2 diabetes mellitus with diabetic chronic kidney disease; J98.4 Other disorders of lung; K21.9 Gastro-esophageal reflux disease without esophagitis; Z20.822 Contact with and (suspected) exposure to COVID-19; K44.9 Diaphragmatic hernia without obstruction or gangrene; Z98.84 Bariatric surgery status; Z90.710 Acquired absence of both cervix and uterus; Z90.49 Acquired absence of other specified parts of digestive tract; Z86.718 Personal history of other venous thrombosis and embolism; Z79.01 Long term (current) use of anticoagulants; Z88.1 Allergy status to other antibiotic agents; Z88.8 Allergy status to other drugs, medicaments and biological substances; Z79.891 Long term (current) use of opiate analgesic; Z79.899 Other long term (current) drug therapy; Z82.49 Family history of ischemic heart disease and other diseases of the circulatory system; Z82.3 Family history of stroke; Z82.5 Family history of asthma and other chronic lower respiratory diseases; Z83.3 Family history of diabetes mellitus; D50.9 Iron deficiency anemia, unspecified; R60.1 Generalized edema; K57.90 Diverticulosis of intestine, part unspecified, without perforation or abscess without bleeding; Z68.23 Body mass index [BMI] 23.0-23.9, adult
CPT/HCPCS: 36415; 74176; 74220; 78278; 80048; 80053; 81003; 82270; 82607; 82728; 82746; 82962; 83540; 83550; 83735; 84100; 84145; 85014; 85018; 85025; 86147; 86256; 86671; 86850; 86900; 86920; 87015; 87045; 87177; 87209; 87426; 87427; 87449; 87493; 89055; 93005; 94640; 99285; A9560; C1893; J1956; J2704; J2920; J3480; J3490; J7040; J7042; J7060; J7512; J7517; P9016; P9021

== ENCOUNTER 2021-06-25 20:21 | Emergency (ER) | payer MEDICARE, MEDICAID ==
[~2021-06-25] VITALS: Ht 167.6 cm; Wt 49.0 kg
[2021-06-25 22:53] LABS: BASOPHILS % 1.4 % (0.0-2.0); EOSINOPHILS % 2.6 % (0.0-5.0); HEMATOCRIT. 31.2 % (36.0-48.0); HEMOGLOBIN. 10.3 g/dL (12.0-16.0); LYMPHOCYTES % 47.6 % (20.0-50.0); MEAN CORPUSCULAR HEMOGLOBIN 27.8 pg (28.0-32.0); MEAN CORPUSCULAR VOLUME 84.3 fL (81.0-99.0); MEAN PLATELET VOLUME 8.2 fl (7.4-10.4); MONOCYTES % 6.8 % (2.0-8.0); NEUTROPHILS % 41.6 % (40.0-76.0); PLATELET 308 x1000/uL (130-400); RED BLOOD CELL COUNT 3.71 mill/uL (4.2-5.4); RED CELL DISTRIBUTION WIDTH 14.7 % (11.6-14.6)
[2021-06-25 23:01] LABS: CHLORIDE 106 mEq/L (98-107)
[2021-06-26 00:10] VITALS: BP 182/99
== END 2021-06-26 00:51 | disposition home or self-care (01) ==
LOC: ER 20:21
DX: I10 Essential (primary) hypertension (principal); D64.9 Anemia, unspecified
CPT/HCPCS: 36415; 80053; 85025; 93005; 99284

== ENCOUNTER 2021-10-21 17:53 | Inpatient (IN) | payer MEDICARE, MEDICAID ==
[~2021-10-21] VITALS: Ht 167.6 cm; Wt 73.0 kg
[2021-10-21 19:29] LABS: BASOPHILS % 1.2 % (0.0-2.0); EOSINOPHILS % 0.8 % (0.0-5.0); HEMATOCRIT. 30.2 % (36.0-48.0); HEMOGLOBIN. 9.4 g/dL (12.0-16.0); LYMPHOCYTES % 31.5 % (20.0-50.0); MEAN CORPUSCULAR HEMOGLOBIN 27.8 pg (28.0-32.0); MEAN PLATELET VOLUME 8.3 fl (7.4-10.4); MONOCYTES % 9.8 % (2.0-8.0); NEUTROPHILS % 56.7 % (40.0-76.0); PLATELET 257 x1000/uL (130-400); RED BLOOD CELL COUNT 3.39 mill/uL (4.2-5.4); RED CELL DISTRIBUTION WIDTH 13.3 % (11.6-14.6)
[2021-10-21 19:35] LABS: CHLORIDE 110 mEq/L (98-107)
[2021-10-22] MEDS ORDERED: FENTANYL CITRATE/PF 50MCG/ML 2ML VIAL IV ONE (04:45)
[2021-10-22 08:45] VITALS: BP 193/97
[2021-10-22 09:32] VITALS: BP 193/97
[2021-10-22] MEDS ORDERED: LORAZEPAM 0.5MG TABLET PO PRN (09:45)
[2021-10-22] MEDS ORDERED: IPRATROPIUM/ALBUTEROL 0.5-3(2.5)MG/3ML NEB NEB PRN (09:45)
[2021-10-22] MEDS ORDERED: ONDANSETRON HCL 4MG/2ML INJ IV PRN (09:45)
[2021-10-22] MEDS ORDERED: GUAIFENESIN 200MG/10ML SUGAR FREE UDC PO PRN (09:45)
[2021-10-22] MEDS: DULOXETINE HCL 60MG DR CAPSULE PO SCH ×2 (10:00→10:50)
[2021-10-22] MEDS: PREDNISONE 10MG TABLET PO SCH (10:00)
[2021-10-22] MEDS: CELECOXIB 200MG CAPSULE PO SCH ×4 (10:00→17:50)
[2021-10-22] MEDS: POTASSIUM CHLORIDE 20MEQ TABLET SR PO SCH (10:49)
[2021-10-22] MEDS: CHOLECALCIFEROL (D3) 1000 UNIT TABLET PO SCH (10:49)
[2021-10-22] MEDS: FUROSEMIDE 20MG TABLET PO SCH (10:51)
[2021-10-22] MEDS: LISINOPRIL 40MG TABLET PO SCH (10:51)
[2021-10-22] MEDS: PANTOPRAZOLE 40MG DR TABLET PO SCH (10:59)
[2021-10-22] MEDS ORDERED: NALOXONE HCL 0.4MG/ML VIAL IV PRN (11:30)
[2021-10-22 12:00] VITALS: BP 185/93
[2021-10-22] MEDS: CALCIUM 1250MG TABLET (500MG ELEMENTAL CALCIUM) PO SCH ×2 (12:21→16:55)
[2021-10-22] MEDS ORDERED: AMLODIPINE 5MG TABLET PO SCH (13:05)
[2021-10-22 13:24] LABS: CLARITY URINE CLEAR (CLEAR); COLOR URINE YELLOW (YELLOW); KETONES URINE NEGATIVE (NEGATIVE); LEUKOCYTE ESTERASE URINE TRACE (NEGATIVE); NITRITE URINE NEGATIVE (NEGATIVE); OCCULT BLOOD URINE NEGATIVE (NEGATIVE); PH URINE 5.5 (4.5-8.0); PROTEIN URINE NEGATIVE (NEGATIVE); SPECIFIC GRAVITY URINE 1.009 (1.005-1.030); UROBILINOGEN URINE 0.2 E.U./dL (0.2-1.0)
[2021-10-22] MEDS ORDERED: HYDRALAZINE HCL 50MG TABLET PO SCH (14:00)
[2021-10-22 16:37] VITALS: BP 162/92
[2021-10-22] MEDS: DEXT 5%/0.45% NACL 1000ML 1,000 ML IV SCH ×2 (16:58→20:54)
[2021-10-22] MEDS: HYDROMORPHONE HCL/PF 2MG/ML CPJ IV PRN ×2 (17:10→21:14)
[2021-10-22 20:00] VITALS: BP 147/88
[2021-10-22] MEDS: ATORVASTATIN CALCIUM 20MG TABLET PO SCH (21:12)
[2021-10-22] MEDS: AMLODIPINE 5MG TABLET PO SCH (21:13)
[2021-10-22] MEDS: HYDRALAZINE HCL 100MG TABLET PO SCH (21:13)
[2021-10-23] VITALS: BP 151/93
[2021-10-23 04:00] VITALS: BP 130/76
[2021-10-23] MEDS: DEXT 5%/0.45% NACL 1000ML 1,000 ML IV SCH ×2 (05:57→14:35)
[2021-10-23] MEDS: HYDRALAZINE HCL 100MG TABLET PO SCH ×3 (05:57→21:18)
[2021-10-23] MEDS: PANTOPRAZOLE 40MG DR TABLET PO SCH (05:57)
[2021-10-23] MEDS: HYDROMORPHONE HCL/PF 2MG/ML CPJ IV PRN ×2 (05:57→12:30)
[2021-10-23 07:03] LABS: BASOPHILS % 0.8 % (0.0-2.0); EOSINOPHILS % 1.1 % (0.0-5.0); HEMATOCRIT. 29.6 % (36.0-48.0); HEMOGLOBIN. 9.5 g/dL (12.0-16.0); LYMPHOCYTES % 34.9 % (20.0-50.0); MEAN CORPUSCULAR HEMOGLOBIN 28.5 pg (28.0-32.0); MEAN CORPUSCULAR VOLUME 88.6 fL (81.0-99.0); MEAN PLATELET VOLUME 8.8 fl (7.4-10.4); MONOCYTES % 8.7 % (2.0-8.0); NEUTROPHILS % 54.5 % (40.0-76.0); PLATELET 254 x1000/uL (130-400); RED BLOOD CELL COUNT 3.35 mill/uL (4.2-5.4); RED CELL DISTRIBUTION WIDTH 13.5 % (11.6-14.6)
[2021-10-23 07:09] LABS: CHLORIDE 106 mEq/L (98-107)
[2021-10-23] MEDS: CALCIUM 1250MG TABLET (500MG ELEMENTAL CALCIUM) PO SCH ×3 (07:50→17:28)
[2021-10-23 08:00] VITALS: BP 133/68
[2021-10-23] MEDS: POTASSIUM CHLORIDE 20MEQ TABLET SR PO SCH (09:14)
[2021-10-23] MEDS: CELECOXIB 200MG CAPSULE PO SCH ×2 (09:14→17:27)
[2021-10-23] MEDS: CHOLECALCIFEROL (D3) 1000 UNIT TABLET PO SCH (09:14)
[2021-10-23] MEDS: PREDNISONE 10MG TABLET PO SCH (09:15)
[2021-10-23] MEDS: AMLODIPINE 5MG TABLET PO SCH ×2 (09:17→17:28)
[2021-10-23] MEDS: FUROSEMIDE 20MG TABLET PO SCH (09:17)
[2021-10-23] MEDS: LISINOPRIL 40MG TABLET PO SCH (09:17)
[2021-10-23] MEDS: DULOXETINE HCL 60MG DR CAPSULE PO SCH (09:18)
[2021-10-23 12:00] VITALS: BP 149/80
[2021-10-23 16:00] VITALS: BP 120/72
[2021-10-23 20:00] VITALS: BP 132/73
[2021-10-23] MEDS: ATORVASTATIN CALCIUM 20MG TABLET PO SCH (21:18)
[2021-10-24] VITALS: BP 121/69
[2021-10-24] MEDS: DEXT 5%/0.45% NACL 1000ML 1,000 ML IV SCH ×3 (01:56→21:56)
[2021-10-24 04:00] VITALS: BP 155/80
[2021-10-24] MEDS: PANTOPRAZOLE 40MG DR TABLET PO SCH (06:29)
[2021-10-24] MEDS: HYDRALAZINE HCL 100MG TABLET PO SCH ×3 (06:30→21:56)
[2021-10-24] MEDS: ACETAMINOPHEN 325MG TABLET PO PRN ×2 (06:39→16:46)
[2021-10-24 08:00] VITALS: BP 148/79
[2021-10-24 08:50] LABS: BASOPHILS % 0.9 % (0.0-2.0); EOSINOPHILS % 0.3 % (0.0-5.0); HEMATOCRIT. 29.7 % (36.0-48.0); HEMOGLOBIN. 9.5 g/dL (12.0-16.0); LYMPHOCYTES % 33.1 % (20.0-50.0); MEAN CORPUSCULAR HEMOGLOBIN 28.2 pg (28.0-32.0); MEAN CORPUSCULAR VOLUME 88.3 fL (81.0-99.0); MEAN PLATELET VOLUME 7.9 fl (7.4-10.4); MONOCYTES % 7.8 % (2.0-8.0); NEUTROPHILS % 57.9 % (40.0-76.0); PLATELET 260 x1000/uL (130-400); RED BLOOD CELL COUNT 3.37 mill/uL (4.2-5.4)
[2021-10-24] MEDS: CHOLECALCIFEROL (D3) 1000 UNIT TABLET PO SCH (09:08)
[2021-10-24] MEDS: CELECOXIB 200MG CAPSULE PO SCH ×2 (09:08→16:50)
[2021-10-24] MEDS: PREDNISONE 20MG TABLET PO SCH (09:08)
[2021-10-24] MEDS: POTASSIUM CHLORIDE 20MEQ TABLET SR PO SCH (09:09)
[2021-10-24] MEDS: SERTRALINE HCL 50MG TABLET PO SCH (09:09)
[2021-10-24] MEDS: LISINOPRIL 40MG TABLET PO SCH (09:09)
[2021-10-24] MEDS: AMLODIPINE 5MG TABLET PO SCH ×2 (09:09→16:45)
[2021-10-24] MEDS: FUROSEMIDE 20MG TABLET PO SCH (09:09)
[2021-10-24] MEDS: CALCIUM 1250MG TABLET (500MG ELEMENTAL CALCIUM) PO SCH ×3 (09:09→16:50)
[2021-10-24 09:21] LABS: CHLORIDE 110 mEq/L (98-107)
[2021-10-24 12:00] VITALS: BP 153/80
[2021-10-24] MEDS: IPRATROPIUM/ALBUTEROL 0.5-3(2.5)MG/3ML NEB NEB SCH (14:32)
[2021-10-24 16:00] VITALS: BP 138/78
[2021-10-24] MEDS: HYDROMORPHONE HCL/PF 2MG/ML CPJ IV PRN (18:04)
[2021-10-24 20:00] VITALS: BP 132/62
[2021-10-24] MEDS: ATORVASTATIN CALCIUM 20MG TABLET PO SCH (21:55)
[2021-10-25] VITALS: BP 130/60
[2021-10-25] MEDS: HYDROMORPHONE HCL/PF 2MG/ML CPJ IV PRN ×2 (00:16→22:08)
[2021-10-25 04:00] VITALS: BP 141/75
[2021-10-25] MEDS: PANTOPRAZOLE 40MG DR TABLET PO SCH (06:39)
[2021-10-25] MEDS: SILDENAFIL CITRATE 20MG TABLET PO SCH ×3 (06:40→22:07)
[2021-10-25] MEDS: HYDRALAZINE HCL 100MG TABLET PO SCH ×3 (06:40→22:00)
[2021-10-25 07:56] LABS: BASOPHILS % 0.5 % (0.0-2.0); EOSINOPHILS % 0.1 % (0.0-5.0); HEMATOCRIT. 27.9 % (36.0-48.0); LYMPHOCYTES % 31.7 % (20.0-50.0); MEAN CORPUSCULAR HEMOGLOBIN 28.6 pg (28.0-32.0); MEAN CORPUSCULAR VOLUME 88.3 fL (81.0-99.0); MEAN PLATELET VOLUME 8.4 fl (7.4-10.4); NEUTROPHILS % 59.7 % (40.0-76.0); PLATELET 259 x1000/uL (130-400); RED BLOOD CELL COUNT 3.15 mill/uL (4.2-5.4)
[2021-10-25] MEDS: IPRATROPIUM/ALBUTEROL 0.5-3(2.5)MG/3ML NEB NEB SCH ×4 (07:59→21:59)
[2021-10-25 08:00] VITALS: BP 134/64
[2021-10-25] MEDS: DEXT 5%/0.45% NACL 1000ML 1,000 ML IV SCH ×2 (08:00→18:58)
[2021-10-25 08:29] LABS: CHLORIDE 106 mEq/L (98-107)
[2021-10-25] MEDS: CELECOXIB 200MG CAPSULE PO SCH ×2 (09:12→17:31)
[2021-10-25] MEDS: SERTRALINE HCL 50MG TABLET PO SCH (09:12)
[2021-10-25] MEDS: POTASSIUM CHLORIDE 20MEQ TABLET SR PO SCH (09:12)
[2021-10-25] MEDS: FUROSEMIDE 20MG TABLET PO SCH (09:12)
[2021-10-25] MEDS: PREDNISONE 20MG TABLET PO SCH (09:13)
[2021-10-25] MEDS: CHOLECALCIFEROL (D3) 1000 UNIT TABLET PO SCH (09:13)
[2021-10-25] MEDS: CALCIUM 1250MG TABLET (500MG ELEMENTAL CALCIUM) PO SCH ×3 (09:13→17:31)
[2021-10-25] MEDS: LISINOPRIL 40MG TABLET PO SCH (09:18)
[2021-10-25] MEDS: AMLODIPINE 5MG TABLET PO SCH ×2 (09:19→17:00)
[2021-10-25 12:00] VITALS: BP 129/69
[2021-10-25] MEDS: SODIUM CHLORIDE 45ML SPRAY NS SCH ×3 (12:06→17:32)
[2021-10-25] MEDS: FLUTICASONE PROPIONATE 50MCG/SPRAY BOTTLE BOTHNSTRLS SCH (12:06)
[2021-10-25 16:00] VITALS: BP 101/47
[2021-10-25 20:00] VITALS: BP 122/61
[2021-10-25] MEDS: ATORVASTATIN CALCIUM 20MG TABLET PO SCH (22:05)
[2021-10-26] VITALS: BP 127/63
[2021-10-26] MEDS: IPRATROPIUM/ALBUTEROL 0.5-3(2.5)MG/3ML NEB NEB SCH ×6 (02:20→20:41)
[2021-10-26] MEDS: DEXT 5%/0.45% NACL 1000ML 1,000 ML IV SCH ×2 (03:37→13:16)
[2021-10-26 04:00] VITALS: BP 123/64
[2021-10-26 05:17] LABS: BASOPHILS % 0.6 % (0.0-2.0); HEMATOCRIT. 24.8 % (36.0-48.0); HEMOGLOBIN. 8.3 g/dL (12.0-16.0); LYMPHOCYTES % 16.7 % (20.0-50.0); MEAN CORPUSCULAR HEMOGLOBIN 28.9 pg (28.0-32.0); MEAN CORPUSCULAR VOLUME 86.9 fL (81.0-99.0); MEAN PLATELET VOLUME 8.2 fl (7.4-10.4); MONOCYTES % 7.9 % (2.0-8.0); NEUTROPHILS % 74.8 % (40.0-76.0); PLATELET 219 x1000/uL (130-400); RED BLOOD CELL COUNT 2.86 mill/uL (4.2-5.4); RED CELL DISTRIBUTION WIDTH 13.3 % (11.6-14.6)
[2021-10-26] MEDS: HYDRALAZINE HCL 100MG TABLET PO SCH ×3 (06:00→21:41)
[2021-10-26] MEDS: SILDENAFIL CITRATE 20MG TABLET PO SCH ×3 (06:32→21:41)
[2021-10-26 08:00] VITALS: BP 123/65
[2021-10-26] MEDS: LISINOPRIL 40MG TABLET PO SCH (09:08)
[2021-10-26] MEDS: SERTRALINE HCL 50MG TABLET PO SCH (09:08)
[2021-10-26] MEDS: PREDNISONE 20MG TABLET PO SCH (09:08)
[2021-10-26] MEDS: AMLODIPINE 5MG TABLET PO SCH ×2 (09:08→17:42)
[2021-10-26] MEDS: FUROSEMIDE 20MG TABLET PO SCH (09:08)
[2021-10-26] MEDS: POTASSIUM CHLORIDE 20MEQ TABLET SR PO SCH (09:09)
[2021-10-26] MEDS: CELECOXIB 200MG CAPSULE PO SCH ×2 (09:09→17:42)
[2021-10-26] MEDS: CALCIUM 1250MG TABLET (500MG ELEMENTAL CALCIUM) PO SCH ×3 (09:09→17:42)
[2021-10-26] MEDS: FAMOTIDINE 20MG TABLET PO SCH (09:10)
[2021-10-26] MEDS: CHOLECALCIFEROL (D3) 1000 UNIT TABLET PO SCH (09:10)
[2021-10-26] MEDS: SODIUM CHLORIDE 45ML SPRAY NS SCH ×3 (09:10→17:42)
[2021-10-26] MEDS: FLUTICASONE PROPIONATE 50MCG/SPRAY BOTTLE BOTHNSTRLS SCH (09:11)
[2021-10-26 12:00] VITALS: BP 143/71
[2021-10-26 16:00] VITALS: BP 140/66
[2021-10-26 20:00] VITALS: BP 142/84
[2021-10-26] MEDS: ATORVASTATIN CALCIUM 20MG TABLET PO SCH (21:41)
[2021-10-27] MEDS: DEXT 5%/0.45% NACL 1000ML 1,000 ML IV SCH ×3 (00:13→20:01)
[2021-10-27] MEDS: HYDROMORPHONE HCL/PF 2MG/ML CPJ IV PRN ×2 (00:14→04:23)
[2021-10-27] MEDS: IPRATROPIUM/ALBUTEROL 0.5-3(2.5)MG/3ML NEB NEB SCH ×5 (01:00→16:54)
[2021-10-27 04:00] VITALS: BP 130/74
[2021-10-27] MEDS: HYDRALAZINE HCL 100MG TABLET PO SCH ×3 (05:43→20:11)
[2021-10-27] MEDS: SILDENAFIL CITRATE 20MG TABLET PO SCH ×3 (05:43→20:11)
[2021-10-27 07:24] LABS: BASOPHILS % 0.6 % (0.0-2.0); EOSINOPHILS % 0.1 % (0.0-5.0); HEMATOCRIT. 27.3 % (36.0-48.0); HEMOGLOBIN. 8.9 g/dL (12.0-16.0); LYMPHOCYTES % 23.6 % (20.0-50.0); MEAN CORPUSCULAR HEMOGLOBIN 28.9 pg (28.0-32.0); MEAN CORPUSCULAR VOLUME 88.2 fL (81.0-99.0); MEAN PLATELET VOLUME 8.4 fl (7.4-10.4); MONOCYTES % 9.2 % (2.0-8.0); NEUTROPHILS % 66.5 % (40.0-76.0); PLATELET 245 x1000/uL (130-400); RED BLOOD CELL COUNT 3.09 mill/uL (4.2-5.4)
[2021-10-27 07:27] LABS: CHLORIDE 106 mEq/L (98-107)
[2021-10-27 09:06] LABS: ALDOLASE 6.3 U/L (3.3-10.3)
[2021-10-27] MEDS: FAMOTIDINE 20MG TABLET PO SCH (09:11)
[2021-10-27] MEDS: LISINOPRIL 40MG TABLET PO SCH (09:11)
[2021-10-27] MEDS: SERTRALINE HCL 50MG TABLET PO SCH (09:11)
[2021-10-27] MEDS: FUROSEMIDE 20MG TABLET PO SCH (09:11)
[2021-10-27] MEDS: AMLODIPINE 5MG TABLET PO SCH ×2 (09:12→17:00)
[2021-10-27] MEDS: PREDNISONE 20MG TABLET PO SCH (09:12)
[2021-10-27] MEDS: CALCIUM 1250MG TABLET (500MG ELEMENTAL CALCIUM) PO SCH ×3 (09:12→17:03)
[2021-10-27] MEDS: POTASSIUM CHLORIDE 20MEQ TABLET SR PO SCH (09:12)
[2021-10-27] MEDS: SODIUM CHLORIDE 45ML SPRAY NS SCH ×3 (09:13→17:04)
[2021-10-27] MEDS: CELECOXIB 200MG CAPSULE PO SCH ×2 (09:13→17:03)
[2021-10-27] MEDS: FLUTICASONE PROPIONATE 50MCG/SPRAY BOTTLE BOTHNSTRLS SCH (09:13)
[2021-10-27] MEDS: CHOLECALCIFEROL (D3) 1000 UNIT TABLET PO SCH (09:14)
[2021-10-27 12:00] VITALS: BP 123/69
[2021-10-27 14:09] LABS: ANA IFA Negative (.)
[2021-10-27 16:00] VITALS: BP 102/57
[2021-10-27 18:09] VITALS: BP 102/57
[2021-10-27 20:00] VITALS: BP 153/79
[2021-10-27] MEDS: ATORVASTATIN CALCIUM 20MG TABLET PO SCH (20:11)
== END 2021-10-27 23:05 | DRG 536 ==
LOC: ER 17:53 → MICUSO 23:40 → ENRESERV 10-22 07:45 → 6EST 10-22 08:19
PROVIDERS: ADMIT Internal Medicine Rheumatology; ATTEND Internal Medicine Rheumatology
DX: S32.591A Other specified fracture of right pubis, initial encounter for closed fracture (principal); E44.1 Mild protein-calorie malnutrition; M16.0 Bilateral primary osteoarthritis of hip; M06.9 Rheumatoid arthritis, unspecified; Z20.822 Contact with and (suspected) exposure to COVID-19; M79.7 Fibromyalgia; I13.10 Hypertensive heart and chronic kidney disease without heart failure, with stage 1 through stage 4 chronic kidney disease, or unspecified chronic kidney disease; E11.22 Type 2 diabetes mellitus with diabetic chronic kidney disease; E78.5 Hyperlipidemia, unspecified; M81.0 Age-related osteoporosis without current pathological fracture; E03.9 Hypothyroidism, unspecified; W01.0XXA Fall on same level from slipping, tripping and stumbling without subsequent striking against object, initial encounter; Y93.01 Activity, walking, marching and hiking; Z96.1 Presence of intraocular lens; E11.42 Type 2 diabetes mellitus with diabetic polyneuropathy; M47.26 Other spondylosis with radiculopathy, lumbar region; M51.16 Intervertebral disc disorders with radiculopathy, lumbar region; D63.8 Anemia in other chronic diseases classified elsewhere; F31.9 Bipolar disorder, unspecified; R53.81 Other malaise; N18.9 Chronic kidney disease, unspecified; I27.21 Secondary pulmonary arterial hypertension; J31.0 Chronic rhinitis; R00.0 Tachycardia, unspecified; Z88.8 Allergy status to other drugs, medicaments and biological substances; Z88.1 Allergy status to other antibiotic agents; Z79.899 Other long term (current) drug therapy; Z98.84 Bariatric surgery status; Z86.718 Personal history of other venous thrombosis and embolism; Y92.098 Other place in other non-institutional residence as the place of occurrence of the external cause; Y99.8 Other external cause status; Z87.11 Personal history of peptic ulcer disease; Z90.710 Acquired absence of both cervix and uterus; Z90.49 Acquired absence of other specified parts of digestive tract; Z98.42 Cataract extraction status, left eye; Z79.01 Long term (current) use of anticoagulants; Z82.49 Family history of ischemic heart disease and other diseases of the circulatory system; Z83.3 Family history of diabetes mellitus; Z82.5 Family history of asthma and other chronic lower respiratory diseases; Z82.3 Family history of stroke; Z82.61 Family history of arthritis; Z68.26 Body mass index [BMI] 26.0-26.9, adult
CPT/HCPCS: 36415; 71045; 72192; 73521; 80048; 80053; 81003; 82085; 82550; 83540; 83550; 84550; 85025; 86256; 87426; 93970; 94640; 97110; 97116; 97162; 97166; 97530; 97535; 99285; C1893; J1170; J2405; J3010; J7070; J7512

== ENCOUNTER 2021-10-27 23:05 | Inpatient (IN) | payer MEDICARE, MEDICAID ==
[~2021-10-27] VITALS: Ht 167.6 cm; Wt 66.2 kg
[2021-10-27 23:05] VITALS: BP 118/52
[2021-10-28] MEDS ORDERED: ONDANSETRON HCL 4MG/2ML INJ IV PRN (02:30)
[2021-10-28] MEDS ORDERED: NALOXONE HCL 0.4 MG/ML 1ML VIAL IV PRN (02:30)
[2021-10-28] MEDS ORDERED: GUAIFENESIN 200MG/10ML SUGAR FREE UDC PO PRN (02:30)
[2021-10-28] MEDS ORDERED: SODIUM CHLORIDE 45ML SPRAY NS PRN (04:00)
[2021-10-28] MEDS: DEXT 5%/0.45% NACL 1000ML 1,000 ML IV SCH ×2 (04:26→15:51)
[2021-10-28] MEDS: HYDRALAZINE HCL 100MG TABLET PO SCH ×3 (04:33→21:31)
[2021-10-28] MEDS: SILDENAFIL CITRATE 20MG TABLET PO SCH ×3 (06:26→21:31)
[2021-10-28 07:39] LABS: BASOPHILS % 0.4 % (0.0-2.0); EOSINOPHILS % 0.2 % (0.0-5.0); HEMATOCRIT. 26.4 % (36.0-48.0); HEMOGLOBIN. 8.8 g/dL (12.0-16.0); LYMPHOCYTES % 27.4 % (20.0-50.0); MEAN CORPUSCULAR VOLUME 87.2 fL (81.0-99.0); MONOCYTES % 9.2 % (2.0-8.0); NEUTROPHILS % 62.8 % (40.0-76.0); PLATELET 235 x1000/uL (130-400); RED BLOOD CELL COUNT 3.03 mill/uL (4.2-5.4); RED CELL DISTRIBUTION WIDTH 13.1 % (11.6-14.6)
[2021-10-28 07:52] LABS: CHLORIDE 108 mEq/L (98-107)
[2021-10-28] MEDS: ACETAMINOPHEN 325MG TABLET PO PRN ×2 (07:57→15:30)
[2021-10-28] MEDS: FAMOTIDINE 20MG TABLET PO SCH (07:58)
[2021-10-28] MEDS: CELECOXIB 200MG CAPSULE PO SCH ×2 (07:58→18:14)
[2021-10-28] MEDS: CHOLECALCIFEROL (D3) 1000 UNIT TABLET PO SCH (07:58)
[2021-10-28] MEDS: FUROSEMIDE 20MG TABLET PO SCH (07:58)
[2021-10-28] MEDS: PREDNISONE 10MG TABLET PO SCH (07:58)
[2021-10-28] MEDS: POTASSIUM CHLORIDE 20MEQ TABLET SR PO SCH (07:58)
[2021-10-28] MEDS: AMLODIPINE 5MG TABLET PO SCH ×2 (07:59→20:37)
[2021-10-28] MEDS: LISINOPRIL 40MG TABLET PO SCH (07:59)
[2021-10-28] MEDS: SERTRALINE HCL 50MG TABLET PO SCH (07:59)
[2021-10-28 08:00] VITALS: BP 136/68
[2021-10-28] MEDS: FLUTICASONE PROPIONATE 50MCG/SPRAY BOTTLE BOTHNSTRLS SCH (08:58)
[2021-10-28] MEDS: SODIUM CHLORIDE 45ML SPRAY NS SCH ×3 (08:58→19:30)
[2021-10-28] MEDS ORDERED: CALCIUM CARBONATE 500MG TABLET CHEW PO SCH (09:00)
[2021-10-28] MEDS: CALCIUM 1250MG TABLET (500MG ELEMENTAL CALCIUM) PO SCH ×3 (10:28→18:14)
[2021-10-28] MEDS: IPRATROPIUM/ALBUTEROL 0.5-3(2.5)MG/3ML NEB HHN SCH ×2 (13:57→19:47)
[2021-10-28 20:00] VITALS: BP 137/71
[2021-10-28] MEDS: ATORVASTATIN CALCIUM 20MG TABLET PO SCH (20:37)
[2021-10-28] MEDS: HYDROCODONE/ACETAMINOPHEN 5/325MG TABLET PO PRN (20:38)
[2021-10-29] MEDS: DEXT 5%/0.45% NACL 1000ML 1,000 ML IV SCH ×3 (00:20→22:24)
[2021-10-29] MEDS: IPRATROPIUM/ALBUTEROL 0.5-3(2.5)MG/3ML NEB HHN SCH ×5 (00:35→21:56)
[2021-10-29] MEDS: HYDRALAZINE HCL 100MG TABLET PO SCH ×3 (05:17→21:02)
[2021-10-29] MEDS: SILDENAFIL CITRATE 20MG TABLET PO SCH ×3 (05:17→21:01)
[2021-10-29] MEDS: HYDROCODONE/ACETAMINOPHEN 5/325MG TABLET PO PRN ×2 (05:18→20:56)
[2021-10-29 07:38] LABS: CHLORIDE 104 mEq/L (98-107)
[2021-10-29 07:48] LABS: FOLIC ACID (FOLATE) SERUM 15.7 ng/mL (>5.38)
[2021-10-29 07:56] LABS: TOTAL IRON BINDING CAPACITY 318 ug/dL (250-450)
[2021-10-29 08:00] VITALS: BP 133/84
[2021-10-29 08:37] LABS: BASOPHILS % 0.5 % (0.0-2.0); EOSINOPHILS % 0.2 % (0.0-5.0); LYMPHOCYTES % 35.4 % (20.0-50.0); MEAN CORPUSCULAR HEMOGLOBIN 28.5 pg (28.0-32.0); MEAN CORPUSCULAR VOLUME 86.9 fL (81.0-99.0); MEAN PLATELET VOLUME 8.5 fl (7.4-10.4); NEUTROPHILS % 56.9 % (40.0-76.0); PLATELET 283 x1000/uL (130-400); RED BLOOD CELL COUNT 3.63 mill/uL (4.2-5.4); RED CELL DISTRIBUTION WIDTH 12.9 % (11.6-14.6)
[2021-10-29 08:45] LABS: HEMOGLOBIN. 10.3 g/dL (12.0-16.0)
[2021-10-29 08:46] LABS: HEMATOCRIT. 31.6 % (36.0-48.0)
[2021-10-29] MEDS: POTASSIUM CHLORIDE 20MEQ TABLET SR PO SCH (10:18)
[2021-10-29] MEDS: LISINOPRIL 40MG TABLET PO SCH (10:18)
[2021-10-29] MEDS: CHOLECALCIFEROL (D3) 1000 UNIT TABLET PO SCH (10:18)
[2021-10-29] MEDS: CALCIUM 1250MG TABLET (500MG ELEMENTAL CALCIUM) PO SCH ×3 (10:19→17:30)
[2021-10-29] MEDS: AMLODIPINE 5MG TABLET PO SCH ×2 (10:19→20:57)
[2021-10-29] MEDS: FUROSEMIDE 20MG TABLET PO SCH (10:19)
[2021-10-29] MEDS: CELECOXIB 200MG CAPSULE PO SCH ×2 (10:19→17:30)
[2021-10-29] MEDS: FAMOTIDINE 20MG TABLET PO SCH (10:19)
[2021-10-29] MEDS: SERTRALINE HCL 50MG TABLET PO SCH (10:19)
[2021-10-29] MEDS: PREDNISONE 10MG TABLET PO SCH (10:19)
[2021-10-29] MEDS: SODIUM CHLORIDE 45ML SPRAY NS SCH ×3 (10:21→17:30)
[2021-10-29] MEDS: FLUTICASONE PROPIONATE 50MCG/SPRAY BOTTLE BOTHNSTRLS SCH (10:22)
[2021-10-29 11:32] LABS: CLARITY URINE CLEAR (CLEAR); COLOR URINE YELLOW (YELLOW); KETONES URINE NEGATIVE (NEGATIVE); LEUKOCYTE ESTERASE URINE NEGATIVE (NEGATIVE); NITRITE URINE NEGATIVE (NEGATIVE); OCCULT BLOOD URINE NEGATIVE (NEGATIVE); PH URINE 7.5 (4.5-8.0); PROTEIN URINE NEGATIVE (NEGATIVE); SPECIFIC GRAVITY URINE 1.009 (1.005-1.030); UROBILINOGEN URINE 0.2 E.U./dL (0.2-1.0)
[2021-10-29] MEDS: CYANOCOBALAMIN 1000MCG/ML VIAL IM SCH (17:30)
[2021-10-29 20:00] VITALS: BP 113/57
[2021-10-29] MEDS: ATORVASTATIN CALCIUM 20MG TABLET PO SCH (20:56)
[2021-10-30] MEDS: IPRATROPIUM/ALBUTEROL 0.5-3(2.5)MG/3ML NEB HHN SCH ×6 (01:03→20:59)
[2021-10-30] MEDS: DEXT 5%/0.45% NACL 1000ML 1,000 ML IV SCH ×2 (05:23→22:27)
[2021-10-30] MEDS: HYDRALAZINE HCL 100MG TABLET PO SCH ×3 (05:23→21:14)
[2021-10-30] MEDS: SILDENAFIL CITRATE 20MG TABLET PO SCH ×3 (05:23→21:14)
[2021-10-30] MEDS: HYDROCODONE/ACETAMINOPHEN 5/325MG TABLET PO PRN ×2 (06:54→21:16)
[2021-10-30 08:00] VITALS: BP 136/53
[2021-10-30] MEDS: PREDNISONE 10MG TABLET PO SCH (09:52)
[2021-10-30] MEDS: LISINOPRIL 40MG TABLET PO SCH (09:53)
[2021-10-30] MEDS: CELECOXIB 200MG CAPSULE PO SCH ×2 (09:53→19:00)
[2021-10-30] MEDS: SERTRALINE HCL 50MG TABLET PO SCH (09:53)
[2021-10-30] MEDS: CALCIUM 1250MG TABLET (500MG ELEMENTAL CALCIUM) PO SCH ×3 (09:54→19:00)
[2021-10-30] MEDS: CHOLECALCIFEROL (D3) 1000 UNIT TABLET PO SCH (09:54)
[2021-10-30] MEDS: AMLODIPINE 5MG TABLET PO SCH ×2 (09:55→21:15)
[2021-10-30] MEDS: POTASSIUM CHLORIDE 20MEQ TABLET SR PO SCH (09:55)
[2021-10-30] MEDS: FUROSEMIDE 20MG TABLET PO SCH (09:55)
[2021-10-30] MEDS: SODIUM CHLORIDE 45ML SPRAY NS SCH ×3 (09:56→19:01)
[2021-10-30] MEDS: FLUTICASONE PROPIONATE 50MCG/SPRAY BOTTLE BOTHNSTRLS SCH (09:56)
[2021-10-30] MEDS: CYANOCOBALAMIN 1000MCG/ML VIAL IM SCH (09:57)
[2021-10-30] MEDS: FAMOTIDINE 20MG TABLET PO SCH (09:58)
[2021-10-30 20:00] VITALS: BP 106/55
[2021-10-30] MEDS: ATORVASTATIN CALCIUM 20MG TABLET PO SCH (21:14)
[2021-10-31] MEDS: IPRATROPIUM/ALBUTEROL 0.5-3(2.5)MG/3ML NEB HHN SCH ×6 (00:50→20:48)
[2021-10-31] MEDS: DEXT 5%/0.45% NACL 1000ML 1,000 ML IV SCH (01:00)
[2021-10-31] MEDS: HYDRALAZINE HCL 100MG TABLET PO SCH ×3 (05:23→21:08)
[2021-10-31] MEDS: SILDENAFIL CITRATE 20MG TABLET PO SCH ×3 (05:25→21:08)
[2021-10-31 08:00] VITALS: BP 104/60
[2021-10-31] MEDS: LISINOPRIL 40MG TABLET PO SCH (09:00)
[2021-10-31] MEDS: AMLODIPINE 5MG TABLET PO SCH ×2 (09:00→20:08)
[2021-10-31] MEDS: CYANOCOBALAMIN 1000MCG/ML VIAL IM SCH (09:16)
[2021-10-31] MEDS: SODIUM CHLORIDE 45ML SPRAY NS SCH ×3 (09:16→16:49)
[2021-10-31] MEDS: POTASSIUM CHLORIDE 20MEQ TABLET SR PO SCH (09:16)
[2021-10-31] MEDS: PREDNISONE 10MG TABLET PO SCH (09:17)
[2021-10-31] MEDS: FUROSEMIDE 20MG TABLET PO SCH (09:17)
[2021-10-31] MEDS: FAMOTIDINE 20MG TABLET PO SCH (09:17)
[2021-10-31] MEDS: SERTRALINE HCL 50MG TABLET PO SCH (09:17)
[2021-10-31] MEDS: CELECOXIB 200MG CAPSULE PO SCH ×2 (09:17→16:48)
[2021-10-31] MEDS: CHOLECALCIFEROL (D3) 1000 UNIT TABLET PO SCH (09:17)
[2021-10-31] MEDS: CALCIUM 1250MG TABLET (500MG ELEMENTAL CALCIUM) PO SCH ×3 (09:17→16:48)
[2021-10-31 20:00] VITALS: BP 118/57
[2021-10-31] MEDS: ATORVASTATIN CALCIUM 20MG TABLET PO SCH (20:08)
[2021-10-31] MEDS: HYDROCODONE/ACETAMINOPHEN 5/325MG TABLET PO PRN (20:08)
[2021-11-01] MEDS: IPRATROPIUM/ALBUTEROL 0.5-3(2.5)MG/3ML NEB HHN SCH ×4 (04:43→17:09)
[2021-11-01] MEDS: HYDRALAZINE HCL 100MG TABLET PO SCH ×2 (05:24→14:00)
[2021-11-01] MEDS: SILDENAFIL CITRATE 20MG TABLET PO SCH ×3 (05:24→21:45)
[2021-11-01 06:58] LABS: BASOPHILS % 0.1 % (0.0-2.0); EOSINOPHILS % 0.1 % (0.0-5.0); HEMATOCRIT. 25.1 % (36.0-48.0); HEMOGLOBIN. 8.1 g/dL (12.0-16.0); LYMPHOCYTES % 22.9 % (20.0-50.0); MEAN CORPUSCULAR HEMOGLOBIN 28.3 pg (28.0-32.0); MEAN PLATELET VOLUME 8.3 fl (7.4-10.4); NEUTROPHILS % 69.9 % (40.0-76.0); PLATELET 227 x1000/uL (130-400); RED BLOOD CELL COUNT 2.88 mill/uL (4.2-5.4); RED CELL DISTRIBUTION WIDTH 13.1 % (11.6-14.6)
[2021-11-01 08:00] VITALS: BP 113/53
[2021-11-01 09:30] VITALS: BP_SYST 107; BP_SYST 115; BP_DIAS 68; BP_DIAS 77
[2021-11-01] MEDS: PREDNISONE 20MG TABLET PO SCH (10:00)
[2021-11-01] MEDS: LISINOPRIL 40MG TABLET PO SCH (10:00)
[2021-11-01] MEDS: AMLODIPINE 5MG TABLET PO SCH (10:00)
[2021-11-01] MEDS: FUROSEMIDE 20MG TABLET PO SCH (10:25)
[2021-11-01] MEDS: CALCIUM 1250MG TABLET (500MG ELEMENTAL CALCIUM) PO SCH ×3 (10:25→17:42)
[2021-11-01] MEDS: CHOLECALCIFEROL (D3) 1000 UNIT TABLET PO SCH (10:25)
[2021-11-01] MEDS: SERTRALINE HCL 50MG TABLET PO SCH (10:25)
[2021-11-01] MEDS: POTASSIUM CHLORIDE 20MEQ TABLET SR PO SCH (10:25)
[2021-11-01] MEDS: CELECOXIB 200MG CAPSULE PO SCH ×2 (10:27→17:42)
[2021-11-01] MEDS: FAMOTIDINE 20MG TABLET PO SCH (10:28)
[2021-11-01] MEDS: HYDROCODONE/ACETAMINOPHEN 5/325MG TABLET PO PRN (10:31)
[2021-11-01] MEDS: CYANOCOBALAMIN 1000MCG/ML VIAL IM SCH (10:32)
[2021-11-01] MEDS: SODIUM CHLORIDE 45ML SPRAY NS SCH ×3 (11:13→17:00)
[2021-11-01 20:00] VITALS: BP 118/66
[2021-11-01] MEDS: ATORVASTATIN CALCIUM 20MG TABLET PO SCH (21:45)
[2021-11-01] MEDS: HYDRALAZINE HCL 50MG TABLET PO SCH (21:46)
[2021-11-02] MEDS: HYDROCODONE/ACETAMINOPHEN 5/325MG TABLET PO PRN (00:13)
[2021-11-02] MEDS: HYDRALAZINE HCL 50MG TABLET PO SCH ×3 (06:00→22:00)
[2021-11-02] MEDS: SILDENAFIL CITRATE 20MG TABLET PO SCH ×3 (06:27→21:06)
[2021-11-02 07:49] LABS: BASOPHILS % 0.5 % (0.0-2.0); EOSINOPHILS % 0.3 % (0.0-5.0); HEMATOCRIT. 26.7 % (36.0-48.0); HEMOGLOBIN. 8.8 g/dL (12.0-16.0); LYMPHOCYTES % 22.7 % (20.0-50.0); MEAN CORPUSCULAR VOLUME 87.8 fL (81.0-99.0); MEAN PLATELET VOLUME 9.3 fl (7.4-10.4); MONOCYTES % 7.8 % (2.0-8.0); NEUTROPHILS % 68.7 % (40.0-76.0); PLATELET 188 x1000/uL (130-400); RED BLOOD CELL COUNT 3.05 mill/uL (4.2-5.4); RED CELL DISTRIBUTION WIDTH 12.9 % (11.6-14.6)
[2021-11-02 08:00] VITALS: BP 168/84
[2021-11-02] MEDS: CHOLECALCIFEROL (D3) 1000 UNIT TABLET PO SCH (08:51)
[2021-11-02] MEDS: CELECOXIB 200MG CAPSULE PO SCH ×2 (08:52→17:21)
[2021-11-02] MEDS: AMLODIPINE 5MG TABLET PO SCH (08:52)
[2021-11-02] MEDS: LISINOPRIL 40MG TABLET PO SCH (08:52)
[2021-11-02] MEDS: FAMOTIDINE 20MG TABLET PO SCH (08:52)
[2021-11-02] MEDS: CYANOCOBALAMIN 1000MCG/ML VIAL IM SCH (08:52)
[2021-11-02] MEDS: CALCIUM 1250MG TABLET (500MG ELEMENTAL CALCIUM) PO SCH ×3 (08:52→17:21)
[2021-11-02] MEDS: POTASSIUM CHLORIDE 20MEQ TABLET SR PO SCH (08:53)
[2021-11-02] MEDS: PREDNISONE 20MG TABLET PO SCH (08:53)
[2021-11-02] MEDS: SERTRALINE HCL 50MG TABLET PO SCH (08:53)
[2021-11-02] MEDS: FUROSEMIDE 20MG TABLET PO SCH (08:53)
[2021-11-02] MEDS: SODIUM CHLORIDE 45ML SPRAY NS SCH ×3 (08:54→17:21)
[2021-11-02 09:00] LABS: CHLORIDE 105 mEq/L (98-107)
[2021-11-02 09:06] LABS: TOTAL IRON BINDING CAPACITY 233 ug/dL (250-450)
[2021-11-02] MEDS: IPRATROPIUM/ALBUTEROL 0.5-3(2.5)MG/3ML NEB HHN SCH (13:00)
[2021-11-02 20:00] VITALS: BP 123/80
[2021-11-02] MEDS: ATORVASTATIN CALCIUM 20MG TABLET PO SCH (21:06)
[2021-11-03] MEDS: ACETAMINOPHEN 325MG TABLET PO PRN (02:29)
[2021-11-03] MEDS: SILDENAFIL CITRATE 20MG TABLET PO SCH ×3 (05:06→21:09)
[2021-11-03] MEDS: HYDRALAZINE HCL 50MG TABLET PO SCH ×3 (06:06→22:00)
[2021-11-03 08:00] VITALS: BP 104/50
[2021-11-03] MEDS: IPRATROPIUM/ALBUTEROL 0.5-3(2.5)MG/3ML NEB HHN SCH ×3 (08:19→21:26)
[2021-11-03] MEDS: LISINOPRIL 40MG TABLET PO SCH (09:00)
[2021-11-03] MEDS: SODIUM CHLORIDE 45ML SPRAY NS SCH ×3 (09:00→17:00)
[2021-11-03] MEDS: AMLODIPINE 5MG TABLET PO SCH (09:00)
[2021-11-03] MEDS: FUROSEMIDE 20MG TABLET PO SCH (09:00)
[2021-11-03] MEDS: SERTRALINE HCL 50MG TABLET PO SCH (09:00)
[2021-11-03] MEDS: FAMOTIDINE 20MG TABLET PO SCH (09:40)
[2021-11-03] MEDS: PREDNISONE 20MG TABLET PO SCH (09:40)
[2021-11-03] MEDS: CALCIUM 1250MG TABLET (500MG ELEMENTAL CALCIUM) PO SCH ×3 (09:40→17:50)
[2021-11-03] MEDS: POTASSIUM CHLORIDE 20MEQ TABLET SR PO SCH (09:40)
[2021-11-03] MEDS: CELECOXIB 200MG CAPSULE PO SCH ×2 (09:40→17:51)
[2021-11-03] MEDS: CHOLECALCIFEROL (D3) 1000 UNIT TABLET PO SCH (09:41)
[2021-11-03] MEDS: CYANOCOBALAMIN 1000MCG/ML VIAL IM SCH (09:41)
[2021-11-03 20:00] VITALS: BP_SYST 123; BP_SYST 129; BP_DIAS 62; BP_DIAS 65
[2021-11-03] MEDS: ATORVASTATIN CALCIUM 20MG TABLET PO SCH (21:08)
[2021-11-04] MEDS: IPRATROPIUM/ALBUTEROL 0.5-3(2.5)MG/3ML NEB HHN SCH ×4 (01:00→20:00)
[2021-11-04] MEDS: HYDRALAZINE HCL 50MG TABLET PO SCH ×3 (06:00→21:21)
[2021-11-04 06:28] LABS: BASOPHILS % 0.3 % (0.0-2.0); EOSINOPHILS % 0.2 % (0.0-5.0); HEMATOCRIT. 25.7 % (36.0-48.0); HEMOGLOBIN. 8.4 g/dL (12.0-16.0); LYMPHOCYTES % 23.6 % (20.0-50.0); MEAN CORPUSCULAR HEMOGLOBIN 28.9 pg (28.0-32.0); MEAN PLATELET VOLUME 7.8 fl (7.4-10.4); NEUTROPHILS % 67.9 % (40.0-76.0); PLATELET 194 x1000/uL (130-400); RED BLOOD CELL COUNT 2.91 mill/uL (4.2-5.4); RED CELL DISTRIBUTION WIDTH 12.9 % (11.6-14.6)
[2021-11-04] MEDS: SILDENAFIL CITRATE 20MG TABLET PO SCH ×2 (06:30→14:10)
[2021-11-04 07:21] LABS: PHOSPHORUS 3.2 mg/dL (2.5-4.9)
[2021-11-04 08:00] VITALS: BP_SYST 116; BP_SYST 190; BP_DIAS 60; BP_DIAS 87
[2021-11-04] MEDS: SERTRALINE HCL 50MG TABLET PO SCH (09:00)
[2021-11-04] MEDS: LISINOPRIL 40MG TABLET PO SCH (09:00)
[2021-11-04] MEDS: FUROSEMIDE 20MG TABLET PO SCH (09:00)
[2021-11-04] MEDS: POTASSIUM CHLORIDE 20MEQ TABLET SR PO SCH (09:57)
[2021-11-04] MEDS: CALCIUM 1250MG TABLET (500MG ELEMENTAL CALCIUM) PO SCH ×3 (09:57→17:40)
[2021-11-04] MEDS: CELECOXIB 200MG CAPSULE PO SCH ×2 (09:57→17:40)
[2021-11-04] MEDS: PREDNISONE 20MG TABLET PO SCH (09:57)
[2021-11-04] MEDS: CHOLECALCIFEROL (D3) 1000 UNIT TABLET PO SCH (09:57)
[2021-11-04] MEDS: FAMOTIDINE 20MG TABLET PO SCH (09:57)
[2021-11-04] MEDS: AMLODIPINE 5MG TABLET PO SCH (09:57)
[2021-11-04] MEDS: CYANOCOBALAMIN 1000MCG/ML VIAL IM SCH (09:58)
[2021-11-04] MEDS: SODIUM CHLORIDE 45ML SPRAY NS SCH ×3 (10:11→17:40)
[2021-11-04 20:00] VITALS: BP_SYST 116; BP_SYST 126; BP_SYST 130; BP_DIAS 56; BP_DIAS 71; BP_DIAS 72
[2021-11-04] MEDS: ATORVASTATIN CALCIUM 20MG TABLET PO SCH (20:23)
[2021-11-05 04:08] LABS: 25-HYDROXY VITAMIN D3 25 ng/mL (.)
[2021-11-05] MEDS: HYDRALAZINE HCL 50MG TABLET PO SCH (05:44)
[2021-11-05 08:00] VITALS: BP 119/53
[2021-11-05] MEDS: IPRATROPIUM/ALBUTEROL 0.5-3(2.5)MG/3ML NEB HHN SCH (08:08)
[2021-11-05] MEDS: FAMOTIDINE 20MG TABLET PO SCH (08:36)
[2021-11-05] MEDS: POTASSIUM CHLORIDE 20MEQ TABLET SR PO SCH (08:36)
[2021-11-05] MEDS: CELECOXIB 200MG CAPSULE PO SCH (08:36)
[2021-11-05] MEDS: CHOLECALCIFEROL (D3) 1000 UNIT TABLET PO SCH (08:36)
[2021-11-05] MEDS: CALCIUM 1250MG TABLET (500MG ELEMENTAL CALCIUM) PO SCH (08:36)
[2021-11-05] MEDS: PREDNISONE 20MG TABLET PO SCH (08:36)
[2021-11-05] MEDS: SODIUM CHLORIDE 45ML SPRAY NS SCH (08:42)
[2021-11-05] MEDS: FUROSEMIDE 20MG TABLET PO SCH (08:44)
[2021-11-05] MEDS: AMLODIPINE 5MG TABLET PO SCH (08:45)
[2021-11-05] MEDS: LISINOPRIL 40MG TABLET PO SCH (08:45)
[2021-11-05] MEDS: SERTRALINE HCL 50MG TABLET PO SCH ×2 (08:45→08:48)
[2021-11-05 10:29] VITALS: BP 119/53
[2021-11-11] MEDS ORDERED: CYANOCOBALAMIN 1000MCG/ML VIAL IM SCH (09:00)
== END 2021-11-05 11:30 | disposition home health service (06) | DRG 536 ==
PROVIDERS: ADMIT Physical Medicine & Rehabilitation Spinal Cord Injury Medicine; ATTEND Internal Medicine Rheumatology
DX: S32.591A Other specified fracture of right pubis, initial encounter for closed fracture (principal); J44.1 Chronic obstructive pulmonary disease with (acute) exacerbation; N17.9 Acute kidney failure, unspecified; F31.5 Bipolar disorder, current episode depressed, severe, with psychotic features; D64.9 Anemia, unspecified; E03.9 Hypothyroidism, unspecified; E53.8 Deficiency of other specified B group vitamins; E78.5 Hyperlipidemia, unspecified; W01.0XXA Fall on same level from slipping, tripping and stumbling without subsequent striking against object, initial encounter; M79.7 Fibromyalgia; M50.30 Other cervical disc degeneration, unspecified cervical region; K27.9 Peptic ulcer, site unspecified, unspecified as acute or chronic, without hemorrhage or perforation; M81.0 Age-related osteoporosis without current pathological fracture; M51.36 Other intervertebral disc degeneration, lumbar region; M47.812 Spondylosis without myelopathy or radiculopathy, cervical region; M47.26 Other spondylosis with radiculopathy, lumbar region; M16.10 Unilateral primary osteoarthritis, unspecified hip; J31.0 Chronic rhinitis; I27.21 Secondary pulmonary arterial hypertension; I11.9 Hypertensive heart disease without heart failure; E11.42 Type 2 diabetes mellitus with diabetic polyneuropathy; Z98.84 Bariatric surgery status; Z90.710 Acquired absence of both cervix and uterus; Z86.718 Personal history of other venous thrombosis and embolism; Z83.3 Family history of diabetes mellitus; Z82.5 Family history of asthma and other chronic lower respiratory diseases; Z82.49 Family history of ischemic heart disease and other diseases of the circulatory system; Z79.01 Long term (current) use of anticoagulants; Z87.11 Personal history of peptic ulcer disease; Y92.89 Other specified places as the place of occurrence of the external cause; Y99.8 Other external cause status; Y93.89 Activity, other specified
CPT/HCPCS: 36415; 70551; 80048; 80053; 81003; 82306; 82607; 82728; 82746; 82962; 83540; 83550; 83735; 83880; 84100; 84134; 84443; 84484; 85025; 85044; 93005; 93306; 93880; 93970; 94640; 97110; 97116; 97150; 97162; 97166; 97530; 97535; C1893; J3420; J7512

== ENCOUNTER 2022-09-10 20:36 | Emergency (ER) | payer MEDICARE, MEDICAID ==
[~2022-09-10] VITALS: Ht 167.6 cm; Wt 69.1 kg
[2022-09-10 21:06] VITALS: BP 143/71
[2022-09-10] MEDS ORDERED: HYDROCODONE/ACETAMINOPHEN 5/325MG TABLET PO ONE (23:30)
[2022-09-10] MEDS ORDERED: HYDR-4001 MT (23:36)
== END 2022-09-11 00:25 | disposition home or self-care (01) ==
LOC: ER 20:36
DX: H92.01 Otalgia, right ear (principal); R68.84 Jaw pain; D64.9 Anemia, unspecified; J45.909 Unspecified asthma, uncomplicated; I10 Essential (primary) hypertension; Z79.899 Other long term (current) drug therapy; Z88.0 Allergy status to penicillin
CPT/HCPCS: 99283

== ENCOUNTER 2023-07-17 16:29 | Inpatient (IN) | payer MEDICARE, MEDICAID ==
[~2023-07-17] VITALS: Ht 167.6 cm; Wt 56.7 kg
[~2023-07-17 16:29] MED LIST changes: +HYDR-4001 MT
[2023-07-17] MEDS ORDERED: HYDROMORPHONE HCL/PF 2MG/ML CPJ IV PRN (18:30)
[2023-07-17] MEDS ORDERED: RACEPINEPHRINE 2.25% 0.5ML NEB VIAL HHN PRN (18:30)
[2023-07-17] MEDS ORDERED: ACETAMINOPHEN 650MG/20.3ML UDC PO PRN (18:45)
[2023-07-17] MEDS ORDERED: DEXT 5%/0.45% NACL 1000ML 1,000 ML IV SCH (19:00)
[2023-07-17 20:00] VITALS: BP 154/88; PULSE 86; RESP 17; RESP 18; TEMP 97.7
[2023-07-17] MEDS: LACTULOSE 20G/30ML UDC PO SCH (21:58)
[2023-07-17] MEDS: DILTIAZEM HCL 180MG CAPSULE ER 24HR PO SCH (21:59)
[2023-07-17] MEDS: DICLOFENAC SODIUM 75MG DR (EC) TABLET PO SCH (21:59)
[2023-07-17] MEDS: BUPROPION HCL 75MG TABLET PO SCH (22:00)
[2023-07-17] MEDS: ATORVASTATIN CALCIUM 20MG TABLET PO SCH (22:01)
[2023-07-18] MEDS: THEOPHYLLINE ANHYDROUS 80 MG/15 ML 120ML PO SCH ×3 (00:02→21:43)
[2023-07-18] MEDS: LACTULOSE 20G/30ML UDC PO SCH ×3 (06:00→21:45)
[2023-07-18] MEDS: PANTOPRAZOLE 40MG DR TABLET PO SCH (06:20)
[2023-07-18 07:17] LABS: BASOPHILS % 0.6 % (0.0-2.0); EOSINOPHILS % 3.3 % (0.0-5.0); HEMATOCRIT. 25.9 % (36.0-48.0); HEMOGLOBIN. 8.6 g/dL (12.0-16.0); LYMPHOCYTES % 37.1 % (20.0-50.0); MEAN CORPUSCULAR HEMOGLOBIN 26.6 pg (28.0-32.0); MEAN CORPUSCULAR HGB CONC 33.2 g/dL (31.0-37.0); MEAN CORPUSCULAR VOLUME 80.2 fL (81.0-99.0); MEAN PLATELET VOLUME 7.4 fl (7.4-10.4); PLATELET 491 x1000/uL (130-400); RED BLOOD CELL COUNT 3.22 mill/uL (4.2-5.4); RED CELL DISTRIBUTION WIDTH 15.2 % (11.6-14.6); WHITE BLOOD COUNT 8.7 x1000/uL (4.5-11.0)
[2023-07-18 08:00] VITALS: BP 160/85; PULSE 69; RESP 17; TEMP 97.7
[2023-07-18] MEDS: LOSARTAN 100 MG TABLET PO SCH (08:53)
[2023-07-18] MEDS: CALCIUM 1250MG TABLET (500MG ELEMENTAL CALCIUM) PO SCH ×3 (08:53→18:07)
[2023-07-18] MEDS: CHOLECALCIFEROL (D3) 1000 UNIT TABLET PO SCH (08:53)
[2023-07-18] MEDS: BUPROPION HCL 75MG TABLET PO SCH ×2 (08:53→21:44)
[2023-07-18] MEDS: PREDNISONE 10MG TABLET PO SCH (08:53)
[2023-07-18] MEDS: DICLOFENAC SODIUM 75MG DR (EC) TABLET PO SCH ×2 (09:00→21:44)
[2023-07-18] MEDS: ACETAMINOPHEN 325MG TABLET PO PRN (09:00)
[2023-07-18 11:19] LABS: CHLORIDE 106 mEq/L (98-107); INDEX HEMOLYSI 1 (1-3); INDEX ICTERIC 1 (1-4); INDEX LIPEMIC 1 (1-3); POTASSIUM 4.1 mEq/L (3.5-5.1); SODIUM 139 mEq/L (136-145)
[2023-07-18 11:29] LABS: ALANINE AMINOTRANSFERASE 15 IU/L (13-61); ALBUMIN 2.7 g/dL (3.4-5.0); ASPARTATE AMINOTRANSFERASE 22 IU/L (15-37); BILIRUBIN TOTAL 0.2 mg/dL (0.1-1.0); CALCIUM 9.8 mg/dL (8.5-10.1); CARBON DIOXIDE 26 mEq/L (21-32); CREATININE 0.9 mg/dL (0.6-1.3); GLUCOSE 82 mg/dL (70-105); PREALBUMIN 15.9 mg/dL (20.0-40.0); PROTEIN TOTAL 6.2 g/dL (6.0-8.3); UREA NITROGEN BLOOD 9 mg/dL (7-21)
[2023-07-18] MEDS ORDERED: HYDROCODONE/ACETAMINOPHEN 5/325MG TABLET PO PRN (14:15)
[2023-07-18] MEDS ORDERED: NALOXONE HCL 0.4MG/ML VIAL IV PRN (14:15)
[2023-07-18] MEDS: MONTELUKAST SODIUM 10MG TABLET PO SCH (18:07)
[2023-07-18 20:00] VITALS: BP 164/90; PULSE 86; RESP 17; TEMP 98.4
[2023-07-18] MEDS: ATORVASTATIN CALCIUM 20MG TABLET PO SCH (21:44)
[2023-07-18] MEDS: DILTIAZEM HCL 180MG CAPSULE ER 24HR PO SCH (21:44)
[2023-07-19] MEDS: LACTULOSE 20G/30ML UDC PO SCH ×3 (05:55→21:57)
[2023-07-19] MEDS: PANTOPRAZOLE 40MG DR TABLET PO SCH (05:56)
[2023-07-19 06:43] LABS: BASOPHILS % 0.5 % (0.0-2.0); HEMATOCRIT. 26.5 % (36.0-48.0); HEMOGLOBIN. 8.7 g/dL (12.0-16.0); LYMPHOCYTES % 46.4 % (20.0-50.0); MEAN CORPUSCULAR HEMOGLOBIN 26.3 pg (28.0-32.0); MEAN CORPUSCULAR HGB CONC 32.9 g/dL (31.0-37.0); MEAN CORPUSCULAR VOLUME 80.1 fL (81.0-99.0); MEAN PLATELET VOLUME 7.5 fl (7.4-10.4); MONOCYTES % 10.6 % (2.0-8.0); NEUTROPHILS % 40.5 % (40.0-76.0); PLATELET 509 x1000/uL (130-400); RED BLOOD CELL COUNT 3.31 mill/uL (4.2-5.4); RED CELL DISTRIBUTION WIDTH 15.5 % (11.6-14.6)
[2023-07-19 08:00] VITALS: BP 133/73; PULSE 85; RESP 18; TEMP 98.1
[2023-07-19] MEDS: THEOPHYLLINE ANHYDROUS 80 MG/15 ML 120ML PO SCH (08:16)
[2023-07-19] MEDS: DICLOFENAC SODIUM 75MG DR (EC) TABLET PO SCH ×2 (08:17→21:56)
[2023-07-19] MEDS: PREDNISONE 10MG TABLET PO SCH (08:18)
[2023-07-19] MEDS: CALCIUM 1250MG TABLET (500MG ELEMENTAL CALCIUM) PO SCH ×3 (08:18→16:57)
[2023-07-19] MEDS: CHOLECALCIFEROL (D3) 1000 UNIT TABLET PO SCH (08:18)
[2023-07-19] MEDS: LOSARTAN 100 MG TABLET PO SCH (08:18)
[2023-07-19] MEDS: BUPROPION HCL 75MG TABLET PO SCH ×2 (08:18→21:56)
[2023-07-19 10:37] LABS: CHLORIDE 106 mEq/L (98-107); INDEX HEMOLYSI 2 (1-3); INDEX ICTERIC 1 (1-4); INDEX LIPEMIC 1 (1-3); POTASSIUM 4.2 mEq/L (3.5-5.1); SODIUM 139 mEq/L (136-145)
[2023-07-19 10:56] LABS: ALANINE AMINOTRANSFERASE 15 IU/L (13-61); ALBUMIN 2.9 g/dL (3.4-5.0); ASPARTATE AMINOTRANSFERASE 27 IU/L (15-37); BILIRUBIN TOTAL 0.2 mg/dL (0.1-1.0); CALCIUM 9.9 mg/dL (8.5-10.1); CARBON DIOXIDE 27 mEq/L (21-32); GLUCOSE 78 mg/dL (70-105); IRON 25 ug/dL (50-175); PROTEIN TOTAL 6.6 g/dL (6.0-8.3); TOTAL IRON BINDING CAPACITY 239 ug/dL (250-450); UREA NITROGEN BLOOD 9 mg/dL (7-21); URIC ACID 2.6 mg/dL (2.6-7.2)
[2023-07-19] MEDS: ACETAMINOPHEN 325MG TABLET PO PRN (14:22)
[2023-07-19] MEDS: MONTELUKAST SODIUM 10MG TABLET PO SCH (16:57)
[2023-07-19] MEDS ORDERED: ALBUTEROL (0.083%) 2.5MG/3ML NEB HHN PRN (17:15)
[2023-07-19 20:00] VITALS: BP 142/73; PULSE 68; RESP 17; TEMP 97.5
[2023-07-19] MEDS: DILTIAZEM HCL 180MG CAPSULE ER 24HR PO SCH (21:56)
[2023-07-19] MEDS: ATORVASTATIN CALCIUM 20MG TABLET PO SCH (21:56)
[2023-07-20] MEDS: ACETAMINOPHEN 325MG TABLET PO PRN (02:36)
[2023-07-20] MEDS: LACTULOSE 20G/30ML UDC PO SCH ×5 (06:00→21:40)
[2023-07-20] MEDS: PANTOPRAZOLE 40MG DR TABLET PO SCH (06:36)
[2023-07-20 08:00] VITALS: BP 153/78; PULSE 79; RESP 18; TEMP 96.9
[2023-07-20] MEDS: BUPROPION HCL 75MG TABLET PO SCH ×2 (09:40→21:39)
[2023-07-20] MEDS: PREDNISONE 10MG TABLET PO SCH (09:40)
[2023-07-20] MEDS: CHOLECALCIFEROL (D3) 1000 UNIT TABLET PO SCH (09:41)
[2023-07-20] MEDS: LOSARTAN 100 MG TABLET PO SCH (09:41)
[2023-07-20] MEDS: DICLOFENAC SODIUM 75MG DR (EC) TABLET PO SCH (09:41)
[2023-07-20] MEDS: CALCIUM 1250MG TABLET (500MG ELEMENTAL CALCIUM) PO SCH ×3 (09:41→18:36)
[2023-07-20 13:02] VITALS: PULSE 72; RESP 18; O2SAT 99
[2023-07-20] MEDS: ALBUTEROL (0.083%) 2.5MG/3ML NEB HHN SCH (13:02)
[2023-07-20] MEDS: MONTELUKAST SODIUM 10MG TABLET PO SCH (18:36)
[2023-07-20 20:00] VITALS: BP 149/78; PULSE 80; RESP 17; TEMP 97.3
[2023-07-20] MEDS: DILTIAZEM HCL 180MG CAPSULE ER 24HR PO SCH (21:38)
[2023-07-20] MEDS: ATORVASTATIN CALCIUM 20MG TABLET PO SCH (21:39)
[2023-07-21] MEDS: DICLOFENAC SODIUM 75MG DR (EC) TABLET PO SCH ×3 (01:53→20:30)
[2023-07-21] MEDS: PANTOPRAZOLE 40MG DR TABLET PO SCH (06:20)
[2023-07-21] MEDS: LACTULOSE 20G/30ML UDC PO SCH ×3 (06:20→22:00)
[2023-07-21 07:35] VITALS: PULSE 68; RESP 18
[2023-07-21] MEDS: ALBUTEROL (0.083%) 2.5MG/3ML NEB HHN SCH ×2 (07:35→16:35)
[2023-07-21 08:00] VITALS: BP 166/94; PULSE 82; RESP 18; TEMP 97
[2023-07-21] MEDS: PREDNISONE 10MG TABLET PO SCH (08:19)
[2023-07-21] MEDS: LOSARTAN 100 MG TABLET PO SCH (08:19)
[2023-07-21] MEDS: CHOLECALCIFEROL (D3) 1000 UNIT TABLET PO SCH (08:20)
[2023-07-21] MEDS: BUPROPION HCL 75MG TABLET PO SCH ×2 (08:20→20:31)
[2023-07-21] MEDS: CALCIUM 1250MG TABLET (500MG ELEMENTAL CALCIUM) PO SCH ×3 (08:21→17:03)
[2023-07-21 09:05] LABS: INDEX HEMOLYSI 1 (1-3)
[2023-07-21 09:19] LABS: HAPTOGLOBIN 99 mg/dL (30-200); LACTATE DEHYDROGENASE 152 IU/L (100-240)
[2023-07-21 16:35] VITALS: PULSE 77; RESP 18; O2SAT 99
[2023-07-21] MEDS: MONTELUKAST SODIUM 10MG TABLET PO SCH (17:03)
[2023-07-21] MEDS: ONDANSETRON HCL 4MG TABLET PO PRN (17:06)
[2023-07-21 20:00] VITALS: BP 150/78; PULSE 87; RESP 17; TEMP 97.7
[2023-07-21] MEDS: DILTIAZEM HCL 180MG CAPSULE ER 24HR PO SCH (20:30)
[2023-07-21] MEDS: ATORVASTATIN CALCIUM 20MG TABLET PO SCH (20:30)
[2023-07-22] MEDS: LACTULOSE 20G/30ML UDC PO SCH ×3 (05:53→21:42)
[2023-07-22] MEDS: PANTOPRAZOLE 40MG DR TABLET PO SCH (06:56)
[2023-07-22 07:08] LABS: BASOPHILS % 0.3 % (0.0-2.0); EOSINOPHILS % 2.8 % (0.0-5.0); HEMATOCRIT. 25.4 % (36.0-48.0); HEMOGLOBIN. 8.3 g/dL (12.0-16.0); LYMPHOCYTES % 40.1 % (20.0-50.0); MEAN CORPUSCULAR HEMOGLOBIN 26.2 pg (28.0-32.0); MEAN CORPUSCULAR HGB CONC 32.6 g/dL (31.0-37.0); MEAN CORPUSCULAR VOLUME 80.3 fL (81.0-99.0); MEAN PLATELET VOLUME 6.9 fl (7.4-10.4); MONOCYTES % 11.4 % (2.0-8.0); NEUTROPHILS % 45.4 % (40.0-76.0); PLATELET 497 x1000/uL (130-400); RED BLOOD CELL COUNT 3.16 mill/uL (4.2-5.4); RED CELL DISTRIBUTION WIDTH 15.4 % (11.6-14.6); WHITE BLOOD COUNT 10.7 x1000/uL (4.5-11.0)
[2023-07-22 07:19] LABS: POTASSIUM 3.9 mEq/L (3.5-5.1)
[2023-07-22 07:23] LABS: CREATININE 1.1 mg/dL (0.6-1.3)
[2023-07-22] MEDS: ALBUTEROL (0.083%) 2.5MG/3ML NEB HHN SCH ×3 (08:00→16:00)
[2023-07-22 09:11] LABS: IMMUNOGLOBULIN A 76 mg/dL (64-422); IMMUNOGLOBULIN G 1234 mg/dL (586-1602); IMMUNOGLOBULIN M 16 mg/dL (26-217)
[2023-07-22] MEDS: BUPROPION HCL 75MG TABLET PO SCH ×2 (09:34→20:50)
[2023-07-22] MEDS: CALCIUM 1250MG TABLET (500MG ELEMENTAL CALCIUM) PO SCH ×3 (09:34→16:43)
[2023-07-22] MEDS: LOSARTAN 100 MG TABLET PO SCH (09:35)
[2023-07-22] MEDS: CHOLECALCIFEROL (D3) 1000 UNIT TABLET PO SCH (09:35)
[2023-07-22] MEDS: DICLOFENAC SODIUM 75MG DR (EC) TABLET PO SCH ×2 (09:35→20:50)
[2023-07-22] MEDS: PREDNISONE 10MG TABLET PO SCH (09:35)
[2023-07-22] MEDS ORDERED: ALBUTEROL (0.083%) 2.5MG/3ML NEB HHN PRN (13:00)
[2023-07-22] MEDS: MONTELUKAST SODIUM 10MG TABLET PO SCH (16:43)
[2023-07-22] MEDS: ONDANSETRON HCL 4MG TABLET PO PRN (16:49)
[2023-07-22 20:00] VITALS: BP 128/79; PULSE 90; RESP 18; TEMP 97.9
[2023-07-22] MEDS: ATORVASTATIN CALCIUM 20MG TABLET PO SCH (20:50)
[2023-07-22] MEDS: DILTIAZEM HCL 180MG CAPSULE ER 24HR PO SCH (20:50)
[2023-07-23] MEDS: PANTOPRAZOLE 40MG DR TABLET PO SCH (06:26)
[2023-07-23] MEDS: LACTULOSE 20G/30ML UDC PO SCH ×3 (06:26→21:07)
[2023-07-23] MEDS: ACETAMINOPHEN 325MG TABLET PO PRN ×2 (06:39→20:34)
[2023-07-23 07:38] VITALS: PULSE 76; RESP 16
[2023-07-23] MEDS: ALBUTEROL (0.083%) 2.5MG/3ML NEB HHN SCH ×2 (07:38→11:55)
[2023-07-23 08:00] VITALS: BP 138/72; PULSE 74; RESP 18; TEMP 96.9
[2023-07-23] MEDS: LOSARTAN 100 MG TABLET PO SCH (08:01)
[2023-07-23] MEDS: PREDNISONE 10MG TABLET PO SCH (08:02)
[2023-07-23] MEDS: CALCIUM 1250MG TABLET (500MG ELEMENTAL CALCIUM) PO SCH ×3 (08:02→16:15)
[2023-07-23] MEDS: CHOLECALCIFEROL (D3) 1000 UNIT TABLET PO SCH (08:02)
[2023-07-23] MEDS: DICLOFENAC SODIUM 75MG DR (EC) TABLET PO SCH ×2 (08:02→20:36)
[2023-07-23] MEDS: BUPROPION HCL 75MG TABLET PO SCH ×3 (08:05→20:54)
[2023-07-23 11:55] VITALS: PULSE 72; RESP 18
[2023-07-23] MEDS: MONTELUKAST SODIUM 10MG TABLET PO SCH (16:16)
[2023-07-23 20:00] VITALS: BP 150/85; PULSE 78; RESP 18; TEMP 97.7
[2023-07-23] MEDS: DILTIAZEM HCL 180MG CAPSULE ER 24HR PO SCH (20:33)
[2023-07-23] MEDS: ATORVASTATIN CALCIUM 20MG TABLET PO SCH (20:33)
[2023-07-23] MEDS: ONDANSETRON HCL 4MG TABLET PO PRN (20:34)
[2023-07-24] MEDS: LACTULOSE 20G/30ML UDC PO SCH ×3 (05:57→21:57)
[2023-07-24] MEDS: PANTOPRAZOLE 40MG DR TABLET PO SCH (06:10)
[2023-07-24 07:30] VITALS: PULSE 78; RESP 16
[2023-07-24] MEDS: ALBUTEROL (0.083%) 2.5MG/3ML NEB HHN SCH ×2 (07:30→15:10)
[2023-07-24 08:10] VITALS: BP 140/70; PULSE 82; RESP 18; TEMP 96.5
[2023-07-24] MEDS: DICLOFENAC SODIUM 75MG DR (EC) TABLET PO SCH ×2 (09:00→21:57)
[2023-07-24] MEDS: LOSARTAN 100 MG TABLET PO SCH (09:13)
[2023-07-24] MEDS: BUPROPION HCL 75MG TABLET PO SCH ×2 (09:13→21:57)
[2023-07-24] MEDS: CHOLECALCIFEROL (D3) 1000 UNIT TABLET PO SCH (09:13)
[2023-07-24] MEDS: PREDNISONE 10MG TABLET PO SCH (09:13)
[2023-07-24] MEDS: CALCIUM 1250MG TABLET (500MG ELEMENTAL CALCIUM) PO SCH ×3 (09:13→17:34)
[2023-07-24] MEDS: ACETAMINOPHEN 325MG TABLET PO PRN (09:15)
[2023-07-24 15:10] VITALS: PULSE 82; RESP 16
[2023-07-24] MEDS: BUDESONIDE 0.5MG/2ML NEB HHN SCH ×2 (15:10→21:32)
[2023-07-24] MEDS: MONTELUKAST SODIUM 10MG TABLET PO SCH (17:34)
[2023-07-24 20:00] VITALS: BP 125/71; PULSE 79; RESP 18; TEMP 97.9
[2023-07-24 21:32] VITALS: PULSE 79; RESP 18
[2023-07-24] MEDS: DILTIAZEM HCL 180MG CAPSULE ER 24HR PO SCH (21:56)
[2023-07-24] MEDS: ATORVASTATIN CALCIUM 20MG TABLET PO SCH (21:56)
[2023-07-25] MEDS: LACTULOSE 20G/30ML UDC PO SCH (05:53)
[2023-07-25] MEDS: PANTOPRAZOLE 40MG DR TABLET PO SCH (06:14)
[2023-07-25] MEDS: ALBUTEROL (0.083%) 2.5MG/3ML NEB HHN SCH (07:36)
[2023-07-25 07:37] VITALS: PULSE 78; RESP 18
[2023-07-25] MEDS: BUDESONIDE 0.5MG/2ML NEB HHN SCH (07:37)
[2023-07-25 08:00] VITALS: BP 133/80; PULSE 80; RESP 17; TEMP 98.1
[2023-07-25] MEDS: BUPROPION HCL 75MG TABLET PO SCH (09:00)
[2023-07-25] MEDS: PREDNISONE 10MG TABLET PO SCH (09:34)
[2023-07-25] MEDS: LOSARTAN 100 MG TABLET PO SCH (09:34)
[2023-07-25] MEDS: DICLOFENAC SODIUM 75MG DR (EC) TABLET PO SCH (09:34)
[2023-07-25] MEDS: CHOLECALCIFEROL (D3) 1000 UNIT TABLET PO SCH (09:34)
[2023-07-25] MEDS: CALCIUM 1250MG TABLET (500MG ELEMENTAL CALCIUM) PO SCH (09:34)
[2023-07-25 11:55] VITALS: BP 133/80; PULSE 80; TEMP 98.1; O2SAT 99
[2023-07-25] MEDS ORDERED: *PATIENT'S OWN MEDICATION STORAGE XX SCH (12:30)
[2023-07-26 13:07] LABS: KAPPA LT CHAINS FREE SERUM 37.2 mg/L (3.3-19.4); KAPPA/LAMBDA RATIO 1.87 (0.26-1.65); LAMBDA LT CHAINS FREE SERUM 19.9 mg/L (5.7-26.3)
== END 2023-07-25 13:05 | disposition home health service (06) | DRG 554 ==
PROVIDERS: ADMIT Physical Medicine & Rehabilitation Spinal Cord Injury Medicine; ATTEND Internal Medicine Rheumatology
DX: M13.0 Polyarthritis, unspecified (principal); E46 Unspecified protein-calorie malnutrition; F31.5 Bipolar disorder, current episode depressed, severe, with psychotic features; M87.88 Other osteonecrosis, other site; M47.812 Spondylosis without myelopathy or radiculopathy, cervical region; D63.8 Anemia in other chronic diseases classified elsewhere; E78.5 Hyperlipidemia, unspecified; G56.03 Carpal tunnel syndrome, bilateral upper limbs; G62.9 Polyneuropathy, unspecified; I10 Essential (primary) hypertension; J44.89 Other specified chronic obstructive pulmonary disease; D50.9 Iron deficiency anemia, unspecified; Z98.84 Bariatric surgery status; E03.9 Hypothyroidism, unspecified; F41.9 Anxiety disorder, unspecified; K59.00 Constipation, unspecified; M23.92 Unspecified internal derangement of left knee; R42 Dizziness and giddiness; R53.81 Other malaise; K57.90 Diverticulosis of intestine, part unspecified, without perforation or abscess without bleeding; R26.9 Unspecified abnormalities of gait and mobility; M47.816 Spondylosis without myelopathy or radiculopathy, lumbar region; M51.36 Other intervertebral disc degeneration, lumbar region; R53.1 Weakness; M79.7 Fibromyalgia; M50.30 Other cervical disc degeneration, unspecified cervical region; M81.0 Age-related osteoporosis without current pathological fracture; Z86.718 Personal history of other venous thrombosis and embolism; Z87.11 Personal history of peptic ulcer disease; Z88.1 Allergy status to other antibiotic agents; Z90.710 Acquired absence of both cervix and uterus; Z91.81 History of falling; Z68.20 Body mass index [BMI] 20.0-20.9, adult; Z79.899 Other long term (current) drug therapy; Z63.4 Disappearance and death of family member
CPT/HCPCS: 36415; 80048; 80053; 82270; 82784; 83010; 83540; 83550; 83615; 83883; 84134; 84550; 85025; 85044; 86334; 86880; 92523; 92610; 93970; 94640; 94660; 97110; 97112; 97116; 97162; 97166; 97530; 97535; 97760; J7512; J7626; Q0162

== ENCOUNTER 2025-05-13 19:01 | Emergency (ER) | payer MEDICARE, MEDICAID ==
[~2025-05-13] VITALS: Ht 167.6 cm; Wt 60.8 kg
[2025-05-13 19:02] VITALS: O2SAT 99
[2025-05-13 19:40] LABS: BASOPHILS % 1.3 % (0.0-2.0); EOSINOPHILS % 1.2 % (0.0-5.0); HEMATOCRIT. 37.1 % (36.0-48.0); HEMOGLOBIN. 12.0 g/dL (12.0-16.0); LYMPHOCYTES % 35.8 % (20.0-50.0); MEAN PLATELET VOLUME 7.9 fl (7.4-10.4); MONOCYTES % 4.2 % (2.0-8.0); NEUTROPHILS % 57.5 % (40.0-76.0); PLATELET 326 x1000/uL (130-400); RED BLOOD CELL COUNT 4.28 mill/uL (4.2-5.4); RED CELL DISTRIBUTION WIDTH 14.5 % (11.6-14.6)
[2025-05-13 19:56] LABS: CREATININE 1.0 mg/dL (0.6-1.0); UREA NITROGEN BLOOD 13 mg/dL (9-23)
[2025-05-13] MEDS: POTASSIUM CHLORIDE 20MEQ TABLET SR PO SCH (22:02)
[2025-05-13] MEDS ORDERED: LOSARTAN 100 MG TABLET PO ONE (22:15)
[2025-05-13] MEDS: LOSARTAN 50 MG TABLET PO NR (22:32)
[2025-05-13 22:35] VITALS: BP 186/89; PULSE 72; RESP 14; TEMP 36.7; O2SAT 98
== END 2025-05-13 22:40 | disposition home or self-care (01) ==
LOC: ER 19:01
DX: I10 Essential (primary) hypertension (principal); J45.909 Unspecified asthma, uncomplicated; Z88.1 Allergy status to other antibiotic agents; Z88.0 Allergy status to penicillin; Z79.899 Other long term (current) drug therapy; Z98.84 Bariatric surgery status
CPT/HCPCS: 36415; 80048; 85025; 93005; 99284

== ENCOUNTER 2025-07-21 15:39 | Emergency (ER) | payer MEDICARE, MEDICAID ==
[~2025-07-21] VITALS: Ht 167.6 cm; Wt 58.0 kg
[2025-07-21 15:45] VITALS: TEMP 36.8; O2SAT 100
[2025-07-21 21:29] VITALS: TEMP 98.2
[2025-07-21] MEDS: ACETAMINOPHEN 500MG TABLET PO ONE (21:29)
[2025-07-21 21:59] VITALS: BP 140/87; PULSE 77; RESP 18; O2SAT 99
== END 2025-07-21 22:01 | disposition home or self-care (01) ==
LOC: ER 15:39
DX: M25.511 Pain in right shoulder (principal); M19.90 Unspecified osteoarthritis, unspecified site; I10 Essential (primary) hypertension; J45.909 Unspecified asthma, uncomplicated; Z88.0 Allergy status to penicillin; Z88.1 Allergy status to other antibiotic agents; Z98.84 Bariatric surgery status; Z79.899 Other long term (current) drug therapy
CPT/HCPCS: 73030; 99283

== ENCOUNTER → 2025-07-31 | Outpatient (CLI) | payer MEDICARE, MEDICAID ==
[2025-07-31 14:25] VITALS: PULSE 72; RESP 16
== END | disposition home or self-care (01) ==
LOC: PF 11:30
PROVIDERS: ATTEND Specialist
DX: J44.9 Chronic obstructive pulmonary disease, unspecified (principal); Z20.822 Contact with and (suspected) exposure to COVID-19
CPT/HCPCS: 87426; 94060; 94729